=== PATIENT | female | born 1965 | race Caucasian/White ===

== ENCOUNTER 2020-04-23 18:19 | Emergency (ER) | payer MEDICARE, SELFPAY ==
[2020-04-23 18:27] VITALS: BP 211/101; PULSE 81; RESP 17; TEMP 36.1; O2SAT 96; BMI 25.8
--- NOTE | 2020-04-23 18:33 | ED_ITS ---
HPI - Eye Problem General: Chief complaint: Eye Problems Stated complaint: eye problems Time Seen by Provider: 04/23/20 18:26 Source: patient Mode of arrival: ambulatory Limitations: no limitations History of Present Illness: HPI Narrative: 55-year-old female who states she was bowling with her grandson states that he jumped up and hit her in the right eye. She does have a subconjunctival hemorrhage and she is 1 make sure that everything was okay. She denies any pain currently. She denies any change in her vision. MD chief complaint: eye pain and eye injury Associated symptoms: Denies fever(s), headache(s), nausea, neck pain or vomiting Review of Systems Const: Denies: fever(s), chills, body aches or change in appetite Eyes: Reports: eye redness ENMT: Denies: throat pain or dental pain Card: Denies: chest pain Resp: Denies: dyspnea GI: Denies: abdominal pain, nausea, vomiting or diarrhea : Denies: dysuria Musc: Denies: neck pain or back pain Skin/Breast: Denies: rash Neuro: Denies: headache(s) Psych: Denies: depression Issac/Lymph: Denies: easy bruising All/Imm: Denies: urticaria Physical Exam Const: COMMON NORMALS: no acute distress, patient oriented x3 and healthy appearing HENMT: COMMON NORMALS: normocephalic and atraumatic HEAD & SCALP: normocephalic and atraumatic Eye: COMMON NORMALS: Equal, round and reactive pupils present and EOMs intact bilaterally PUPIL: Yes Equal, round and reactive pupils present OTHER: Corneal abrasion noted to right eye under fluoroscopy seen. Patient also has a small subconjunctival hemorrhage Neck/C-Spine: COMMON NORMALS: full ROM and supple Chest: COMMONS NORMALS: normal inspection of the chest and normal palpation of entire chest wall Resp: COMMON NORMALS: normal respiratory effort, No retractions, No use of accessory muscles and clear to auscultation bilaterally AUSCULTATION: clear to auscultation bilaterally Cardio: COMMON NORMALS: regular rate, regular rhythm and No murmurs present (Cardio) RATE: regular rate RHYTHM: regular rhythm GI: COMMON NORMALS: Normal to inspection, nondistended, normoactive bowel sounds present, Soft to palpation, non-tender and no masses PALPATION: Yes Soft to palpation Extremity: COMMON NORMALS: normal to inspection and full ROM Neuro: COMMON NORMALS: patient oriented x3, moves all extremities and no focal motor deficits Psych: COMMON NORMALS: mental status grossly normal, Normal thought process present and cooperative THOUGHT PROCESS: Normal thought process present Skin: COMMON NORMALS: no rashes or lesions noted and no wounds GENERAL SKIN EXAM: no rashes or lesions noted Course Vital Signs: Vital signs: Vital Signs Temperature 96.9 F L 04/23/20 18:27 Pulse Rate 81 04/23/20 18:27 Respiratory Rate 17 04/23/20 18:27 Blood Pressure 211/101 04/23/20 18:27 Pulse Oximetry 96 04/23/20 18:27 MDM - Eye Problem MDM Narrative: Medical decision making narrative: Patient presents with a corneal abrasion along with a small subconjunctival hemorrhage to her right eye. She has no change in her vision. We will place her on erythromycin ointment. She is to follow-up with Dr. Linares and is return if worsening. She understands and agrees to the plan. Discharge Plan Discharge Patient Disposition: Home Clinical Impression: Corneal abrasion Qualifiers: Encounter type: initial encounter Laterality: right Qualified Code(s): S05.01XA - Injury of conjunctiva and corneal abrasion without foreign body, right eye, initial encounter Subconjunctival hemorrhage Qualifiers: Laterality: right Qualified Code(s): H11.31 - Conjunctival hemorrhage, right eye Condition: Stable Prescriptions: New erythromycin 5 mg/gram (0.5 %) ointment 1 applic ophthalmic (eye) TID 7 Days Qty: 3.5 RF: 0 Discharge Orders: Discharge Order (Routine); Ordered 04/23/20 Ordered By: Joselin Lopez Referrals: Felix Linares MD [Physician] - 1-3 days Nando Lopez MD [Family Provider] - Discharge Diet: Advance as tolerated Discharge Activity: Resume usual activity Patient Instructions: Subconjunctival Hemorrhage (ED), Corneal Abrasion (ED) Coding Level of Care Code ED Clinical Investigator for Chg Fwd Exam Comprehensive
[2020-04-23 18:43] VITALS: O2SAT 97
--- NOTE | 2020-04-28 09:45 | DCPLANNER ---
applications manager had message to schedule a follow up appointment for patient with Dr. Linares. applications manager had another message from Suzanne Badillo stating that a referral had been made to Dr. Linares office. This shoe caser called the office of Dr. Linares to confirm that an appointment had been scheduled for patient. applications manager was told that patient called and spoke with the physicians orthotics prosthetics assistant and does not want the appointment at this time.
== END 2020-04-23 18:45 | disposition home or self-care (01) ==
PROVIDERS: Emergency Provider Emergency Medicine; PCP Family Medicine
DX: H11.31 Conjunctival hemorrhage, right eye (principal); S05.01XA Injury of conjunctiva and corneal abrasion without foreign body, right eye, initial encounter; W50.0XXA Accidental hit or strike by another person, initial encounter
CPT/HCPCS: 12345; 99282

== ENCOUNTER 2020-07-20 08:01 | Outpatient (CLI) | payer BC, SELFPAY ==
--- NOTE | 2020-07-20 08:05 | MM_ITS ---
WS: [id number] BILATERAL DIGITAL SCREENING MAMMOGRAPHY WITH CAD CLINICAL INFORMATION: SCREENING HISTORY: Screening mammogram. No current complaints. COMPARISON: None. TECHNIQUE: Bilateral CC and MLO views. FINDINGS: The breasts are composed of heterogeneous fibroglandular density tissue, which can limit the detectio n of small underlying mass lesions. 7 mm asymmetric density outer left breast posterior depth only se en on the cc view. No comparisons available. Recommend spot compression views and ultrasound if persi stent. Unremarkable right breast. MM/[place] [id number] IMPRESSION: BI-RADS: 0-Incomplete: Need additional imaging evaluation FOLLOW UP: Need Additional Imaging Recommend spot compression views LEFT breast and ultrasound if persistent
== END 2020-07-20 08:02 | disposition home or self-care (01) ==
LOC: RADSHAW 08:03
PROVIDERS: PCP Family Medicine; Visit Provider Family Medicine
DX: Z12.31 Encounter for screening mammogram for malignant neoplasm of breast (principal); N64.89 Other specified disorders of breast
CPT/HCPCS: 77067

== ENCOUNTER 2020-08-04 07:59 | Outpatient (CLI) | payer BC, SELFPAY ==
--- NOTE | 2020-08-04 | US_ITS ---
WS: [id number] LEFT DIGITAL MAMMOGRAPHY WITH CAD CLINICAL INFORMATION: LT BREAST ASYMMETRY COMPARISON: None. TECHNIQUE: 2 views of the left breast were obtained. FINDINGS: The left breast is composed of heterogeneous fibroglandular density tissue, which can limit the detec tion of small underlying mass lesions. Lucent centered calcification. Stable 7 mm asymmetric density outer left breast posterior depth. Ultrasound is pending. ULTRASOUND BREAST LEFT TECHNIQUE: Ultrasound left breast focused area of concern. CLINICAL INFORMATION: LT BREAST ASYMMETRY COMPARISON: None. FINDINGS: Ultrasound left breast 1:00 position 4 cm from the nipple. A few subcentimeter cystic lesions. Mild d uctal ectasia. No suspicious lesions to target for biopsy. Findings have a benign appearance. US/US breast LT limited* [id number] IMPRESSION: BI-RADS: 2-Benign FOLLOW UP: 1 Year Follow-up Recommend return to annual screening mammography.
--- NOTE | 2020-08-04 08:06 | MM_ITS ---
WS: [id number] LEFT DIGITAL MAMMOGRAPHY WITH CAD CLINICAL INFORMATION: LT BREAST ASYMMETRY COMPARISON: None. TECHNIQUE: 2 views of the left breast were obtained. FINDINGS: The left breast is composed of heterogeneous fibroglandular density tissue, which can limit the detec tion of small underlying mass lesions. Lucent centered calcification. Stable 7 mm asymmetric density outer left breast posterior depth. Ultrasound is pending. ULTRASOUND BREAST LEFT TECHNIQUE: Ultrasound left breast focused area of concern. CLINICAL INFORMATION: LT BREAST ASYMMETRY COMPARISON: None. FINDINGS: Ultrasound left breast 1:00 position 4 cm from the nipple. A few subcentimeter cystic lesions. Mild d uctal ectasia. No suspicious lesions to target for biopsy. Findings have a benign appearance. MM/MM spot mag [facility] [id number] IMPRESSION: BI-RADS: 2-Benign FOLLOW UP: 1 Year Follow-up Recommend return to annual screening mammography.
== END 2020-08-04 08:00 | disposition home or self-care (01) ==
LOC: RADSHAW 08:01
PROVIDERS: PCP Family Medicine; Visit Provider Family Medicine
DX: N64.89 Other specified disorders of breast (principal)
CPT/HCPCS: 76642; 77065

== ENCOUNTER 2020-11-17 08:55 | Observation (INO) | payer BC, SELFPAY ==
[2020-11-17] VITALS (10 sets, daily range): BP systolic 125–162; BP diastolic 78–90; PULSE 84–113; RESP 17–20; TEMP 36.6–36.7; O2SAT 94–100; BMI 27.4
--- NOTE | 2020-11-17 09:04 | XR_ITS ---
WS: [id number] Exam: XR chest 1V portable [id number] Date/Time of Exam: 11/17/2020 9:25 AM Reason For Exam: dyspnea/cough Findings: The lungs are clear and fully expanded. Costophrenic angles are sharp. No infiltrates. Bronchovascula r relief appears normal. Cardiac silhouette is unremarkable. Bony elements are intact. XR/XR chest 1V portable [id number] IMPRESSION: Unremarkable chest radiograph.
--- NOTE | 2020-11-17 09:05 | ECG_ITS ---
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: : 1965 Requested By: Dereck Mccray Order Number: [id number] Reading MD: JOHNNIE DILLON Measurements Intervals [place] Rate: 80 P: -2 WI: 127 QRS: -49 QRSD: 101 T: -9 QT: 376 QTc: 436 Interpretive Statements SINUS RHYTHM LEFT AXIS DEVIATION [QRS AXIS < -30] INCOMPLETE RIGHT BUNDLE BRANCH BLOCK [90+ ms QRS DURATION, TERMINAL R IN V1/V2, 40+ ms S IN I/aVL/V4/V5/V6] POSSIBLE SEPTAL MYOCARDIAL INFARCTION , PROBABLY OLD [30 ms Q WAVE IN V1/V2] Compared to ECG 11/17/2020 09:12:58 Myocardial infarct finding now present T-wave abnormality no longer present Electronically Signed On 11-17-2020 20:07:54 [employer] by JOHNNIE DILLON [id number]
--- NOTE | 2020-11-17 09:27 | ED_ITS ---
HPI - Abdominal Pain General: Chief Complaint: Abdominal Pain Stated Complaint: CHEST PAIN, AB PAIN Time Seen by Provider: 11/17/20 08:56 History of Present Illness: HPI narrative: 55 yo female with complaints of RUQ abd pain rasiaiting into the back. WOrse with eating. has a hx of GERD and is on OTC meds. Denies vomitting but has been nauseous. No hematemesis or coffee ground emesis, no melena or hematochezia. Tums for the last 4 days prior to that she intermittently had symptoms lysed out of them as heartburn she is tried various [id number]-fis-[id number] remedies with no significant improvement she last ate this morning around 7. MD elicited complaint: abdominal pain Onset (ago): day(s) (4) Pain Consistency: constant and colicky Location: RUQ Severity: moderate Quality: cramping Radiation: back Exacerbating factors: eating Associated Symptoms: Reports anorexia, bloating, GI cramping, dyspepsia, nausea and poor appetite; Denies change in bowel habits, change in stool character, chills, coffee ground emesis, constipation, diarrhea, dysuria, excessive flatus, fever(s), heartburn, hematochezia, hematuria, hematemesis, fecal incontinence, loose stools, melena, syncope and vomiting Review of Systems Const: Denies: fever(s) or chills ENMT: Denies: throat pain, ear or mastoid pain, nasal discharge or nasal congestion Card: Denies: syncope Resp: Denies: dyspnea, productive cough or non-productive cough GI: Reports: nausea, bloating and GI cramping; Denies: vomiting, hematemesis, coffee ground emesis, heartburn, diarrhea, constipation, excessive flatus, change in bowel habits, change in stool diego cter, hematochezia or melena : Denies: dysuria or hematuria Skin/Breast: Denies: rash or pruritus PFSH ED PFSH: Medical History (Updated 11/17/20 @ 13:27 by Dereck Gage DO) Diabetes HTN (hypertension) Physical Exam Const: COMMON NORMALS: no acute distress GENERAL APPEARANCE: cooperative and comfortable ORIENTATION/CONSCIOUSNESS: Yes awake, Yes oriented to person, Yes oriented to place and Yes oriented to time HENMT: COMMON NORMALS: normocephalic, atraumatic and hearing grossly normal bilaterally HEAD & SCALP: normocephalic and atraumatic Neck/C-Spine: COMMON NORMALS: no JVD Resp: COMMON NORMALS: normal respiratory effort, No retractions, No use of accessory muscles and clear to auscultation bilaterally AUSCULTATION: clear to auscultation bilaterally Cardio: COMMON NORMALS: no JVD, regular rate, regular rhythm and No murmurs present (Cardio) RATE: regular rate RHYTHM: regular rhythm GI: COMMON NORMALS: Soft to palpation and No hepatosplenomegaly present AUSCULTATION: Yes normoactive bowel sounds PALPATION: Yes Soft to palpation, No Tenderness to palpation present (GI), No Guarding due to palpation present (GI) and Yes No hepatosplenomegaly present Extremity: COMMON NORMALS: normal to inspection, capillary refill normal, no clubbing, cyanosis or edema, no calf tenderness and no pedal edema Neuro: SENSORIUM/ORIENTATION: Yes oriented to person, Yes oriented to place and Yes oriented to time Skin: COMMON NORMALS: no rashes or lesions noted GENERAL SKIN EXAM: no rashes or lesions noted Course Vital Signs: Vital signs: Vital Signs Temperature 97.9 F 11/17/20 09:11 Pulse Rate 103 H 11/17/20 12:21 Respiratory Rate 18 11/17/20 12:21 Blood Pressure 140/78 11/17/20 12:21 Pulse Oximetry 100 11/17/20 12:21 MDM - Abdominal Pain MDM Narrative: Medical decision making narrative: MRCP shows acute cholecystitis but no evidence of common bile duct stone despite there is a dilated common bile duct. Discussed with Dr. Pepe he will take on his primary consult hospitalist for hypertension and diabetes. Lab Data: Labs: Lab Results 11/17/20 11/17/20 11/17/20 Range/Units 09:40 10:19 10:43 WBC 13.7 H (4.0-10.0) 10^3/ uL RBC 5.15 (4.1-5.3) 10^6/u L Hgb 15.6 H (11.5-15.3) g/dL Hct 47.0 (37.0-47.0) % MCV 91.3 (81-99) fL MCH 30.3 (28.0-34.0) pg MCHC 33.2 (30.0-36.0) g/dL RDW 13.0 (12.1-15.1) % Plt Count 263 (130-400) 10^3/c mm MPV 10.5 H (7.4-10.4) fL Neut % (Auto) 82.1 % Lymph % (Auto) 9.2 % [place] % (Auto) 7.5 % Eos % (Auto) 0.4 % Baso % (Auto) 0.4 % Neut # (Auto) 11.21 H (1.8-7.7) 10^3/u L Lymph # (Auto) 1.3 (0.8-4.8) 10^3/u L [place] # (Auto) 1.0 H (0.2-0.9) 10^3/u L Eos # (Auto) 0.1 (0.0-0.8) 10^3/u L Baso # (Auto) 0.1 (0.0-0.1) 10^3/u L Nucleated RBC % (a uto) 0 % Nucleated RBCs # 0.0 /100WBC Sodium 138 (136-145) mmol/L Potassium 3.4 L (3.5-5.1) mmol/L Chloride 100 (98-107) mmol/L Carbon Dioxide 27 (22-29) mmol/L Anion Gap 14.4 (5-19) BUN 14 (6-20) mg/dL Creatinine 0.7 (0.5-0.9) mg/dL GFR Calculation 86.2 L (90-130) mL/min Glucose 140 H (65-115) mg/dL Calculated Osmolal ity 289 (285-295) mOsm/k g Calcium 9.8 (8.5-10.5) mg/dL Total Bilirubin 1.0 (0.15-1.2) mg/dL AST 20 (0-32) U/L ALT 30 (0-33) U/L Alkaline Phosphata se 87 (35-105) IU/L Troponin T Baselin e (0-10) ng/L Troponin T 120 Min [place] (0-10) ng/L Delta Troponin T (0-10) ABS# Total Protein 7.5 (6.6-8.7) g/dL Albumin 4.7 (3.5-5.2) g/dL Globulin 2.8 (1.3-4.6) g/dL Lipase 31 (13-60) U/L Urine Color Yellow (Yellow) Urine Appearance Clear (CLEAR) Urine pH 6.5 (5-7) Ur Specific Gravit y 1.010 (1.005-1.030) Urine Protein 1+ H (Negative) Urine Glucose (UA) 4+ H (Normal) Urine Ketones 1+ H (Negative) Urine Blood 2+ H (Negative) Urine Nitrate Negative (Negative) Urine Bilirubin Neg (Negative) Urine Urobilinogen 1 H (Negative) mg/dL Ur Leukocyte [place] ase Negative (Negative) Urine RBC 0-4 H (0-2) /hpf Urine WBC 0-4 H (0-5) /hpf Ur Squamous Epith Cells 5-10 H (0-5) /hpf Amorphous Sediment Not Reportable Urine Bacteria Trace (NONE) /hpf Urine Mucus Trace /hpf 11/17/20 11/17/20 Range/Units 10:43 11:38 WBC (4.0-10.0) 10^3/ uL RBC (4.1-5.3) 10^6/u L Hgb (11.5-15.3) g/dL Hct (37.0-47.0) % MCV (81-99) fL MCH (28.0-34.0) pg MCHC (30.0-36.0) g/dL RDW (12.1-15.1) % Plt Count (130-400) 10^3/c mm MPV (7.4-10.4) fL Neut % (Auto) % Lymph % (Auto) % [place] % (Auto) % Eos % (Auto) % Baso % (Auto) % Neut # (Auto) (1.8-7.7) 10^3/u L Lymph # (Auto) (0.8-4.8) 10^3/u L [place] # (Auto) (0.2-0.9) 10^3/u L Eos # (Auto) (0.0-0.8) 10^3/u L Baso # (Auto) (0.0-0.1) 10^3/u L Nucleated RBC % (a uto) % Nucleated RBCs # /100WBC Sodium (136-145) mmol/L Potassium (3.5-5.1) mmol/L Chloride (98-107) mmol/L Carbon Dioxide (22-29) mmol/L Anion Gap (5-19) BUN (6-20) mg/dL Creatinine (0.5-0.9) mg/dL GFR Calculation (90-130) mL/min Glucose (65-115) mg/dL Calculated Osmolal ity (285-295) mOsm/k g Calcium (8.5-10.5) mg/dL Total Bilirubin (0.15-1.2) mg/dL AST (0-32) U/L ALT (0-33) U/L Alkaline Phosphata se (35-105) IU/L Troponin T Baselin e 6 (0-10) ng/L Troponin T 120 Min [place] 6.00 (0-10) ng/L Delta Troponin T 0 (0-10) ABS# Total Protein (6.6-8.7) g/dL Albumin (3.5-5.2) g/dL Globulin (1.3-4.6) g/dL Lipase (13-60) U/L Urine Color (Yellow) Urine Appearance (CLEAR) Urine pH (5-7) Ur Specific Gravit y (1.005-1.030) Urine Protein (Negative) Urine Glucose (UA) (Normal) Urine Ketones (Negative) Urine Blood (Negative) Urine Nitrate (Negative) Urine Bilirubin (Negative) Urine Urobilinogen (Negative) mg/dL Ur Leukocyte [place] ase (Negative) Urine RBC (0-2) /hpf Urine WBC (0-5) /hpf Ur Squamous Epith Cells (0-5) /hpf Amorphous Sediment Urine Bacteria (NONE) /hpf Urine Mucus /hpf Discharge Plan Discharge Patient Disposition: Admitted As Inpatient Clinical Impression: Acute cholecystitis, HTN (hypertension), Diabetes Condition: Stable Prescriptions: No Action Tylenol Extra Strength 500 mg Tablet 500 - 1,000 mg PO PRN RF: 0 metoprolol ta-hydrochlorothiaz 100-25 mg tablet 1 tab PO QAM RF: 0 triamcinolone acetonide 0.1 % ointment 1 applic TOPICAL PRN RF: 0 metformin 750 mg tablet extended release 24 hr 1,500 mg PO QPM RF: 0 Jardiance 10 mg tablet 10 mg PO QAM RF: 0 naproxen 1 tab PO PRN RF: 0 Referrals: Alina French MD [Primary Care Provider] - Patient Instructions: Opioid Safety Coding Level of Care Code ED Drilling Machine Runner for Chg Fwd Exam Comprehensive
--- NOTE | 2020-11-17 09:27 | US_ITS ---
WS: [id number] ULTRASOUND ABDOMEN LIMITED CLINICAL INFORMATION: RUQ abd pain COMPARISON: None. FINDINGS: Liver Size: Normal. Craniocaudal length: 17.5 cm. Echogenicity: Coarse Surface nodularity: None. Mass (size and location): None. Bile ducts Intrahepatic ducts: Normal. Common bile duct diameter: 0.6 cm. Difficult to visualize Gallbladder Distended hydropic gallbladder with cholelithiasis and wall thickening. Distended gallbladder measure s 14.1 cm [id number]. Pericholecystic edema. Findings suspicious for acute cholecystitis. Gallstones: Present Gallbladder sludge: None. Gallbladder wall thickenin.7 mm Pancreas Normal as visualized. Right kidney: Normal. Hydronephrosis: None. Size: 10.8 cm x 5.2 cm x 4.9 cm. Abdominal aorta and IVC Visualized portions are normal. Ascites: None. US/US gall bladder [id number] IMPRESSION: 1. Hepatomegaly diffuse fatty infiltration. 2. Cholelithiasis with pericholecystic fluid/edema suspicious for acute cholec ystitis. Distended hydropic gallbladder. Prominent Common bile duct not well vi sualized. 3. No hydronephrosis in right kidney.
--- NOTE | 2020-11-17 10:09 | MR_ITS ---
WS: [id number] MRI/MRCP OF THE ABDOMEN WITHOUT GADOLINIUM ENHANCEMENT TECHNIQUE: Thin and thick slab MRCP, Axial T2, Coronal MRCP, Axial Dual Echo, and Axial 2-D Fiesta imaging was obtained. Coronal 2-D Fiesta imaging. CLINICAL INFORMATION: dialted CBD/cholelithiasis COMPARISON: None. FINDINGS: Hepatomegaly diffuse fatty infiltration. Cholelithiasis with gallbladder wall thickening and perichol ecystic fluid in the gallbladder fossa. Findings are consistent with acute cholecystitis. Inflammator y stranding and edema in the gallbladder fossa. Gallbladder wall measures 6 to 7 mm. 2 large gallblad bahman calculi measuring 3 and 4 mm respectively. Hydropic distended gallbladder measuring 14.3 cm pole- to-pole. No significant intrahepatic biliary ductal dilatation. Mild prominence of the common bile duct at the pancreatic head measuring 6 mm. This tapers normally at the distal pancreatic head. No evidence of c holedocholithiasis. Small right hepatic cyst measuring 8 mm. Normal spleen. Small splenule. Normal caliber abdominal aort a. Normal renal parenchymal enhancement. No hydronephrosis. Small left renal cortical cysts. Normal c aliber abdominal aorta. MR/MR MRCP [id number] Impression: 1. Findings compatible with acute cholecystitis described above. Associated pr ominent gallbladder wall thickening and pericholecystic fluid. 2. Large calculi in the gallbladder measuring 3 to 4 cm with hydropic distende d gallbladder measuring 14 cm pole to pole. 3. No evidence of choledocholithiasis. 4. No significant intrahepatic biliary duct dilatation. Notified Dereck Gage DO at 11/17/2020 1:16 PM.
[2020-11-17 10:46] LABS: Urine Color Yellow (Yellow)
[2020-11-17 10:47] LABS: Add Urine Microscopic? YES; Bilirubin Urine Neg (Negative); Blood Urine 2+ (Negative); Glucose Urine UA 4+ (Normal); Ketones Urine 1+ (Negative); Leukocyte Esterase Urine Negative (Negative); Nitrate Urine Negative (Negative); Protein Urine 1+ (Negative); Urine Appearance Clear (CLEAR); Urobilinogen Urine 1 mg/dL (Negative); pH Urine 6.5 (5-7)
[2020-11-17 10:50] LABS: Bacteria Urine TRACE /hpf; RBC Urine 0-4 /hpf (0-2); WBC Urine 0-4 /hpf (0-5)
[2020-11-17 10:51] LABS: Add Urine Culture? No; Mucus Urine TRACE /hpf
[2020-11-17 10:52] LABS: Basophils # 0.1 10^3/uL (0.0-0.1); Basophils % 0.4 %; Eosinophils # 0.1 10^3/uL (0.0-0.8); Eosinophils % 0.4 %; Hemoglobin 15.6 g/dL (11.5-15.3); Lymphocytes # 1.3 10^3/uL (0.8-4.8); Lymphocytes % 9.2 %; Mean Corpuscular HGB Conc 33.2 g/dL (30.0-36.0); Mean Corpuscular Hemoglobin 30.3 pg (28.0-34.0); Mean Corpuscular Volume 91.3 fL (81-99); Mean Platelet Volume 10.5 fL (7.4-10.4); Monocytes % 7.5 %; Neutrophils # 11.21 10^3/uL (1.8-7.7); Neutrophils % 82.1 %; Nucleated Red Blood Cells % 0 %; Platelet Count 263 10^3/cmm (130-400); Red Blood Count 5.15 10^6/uL (4.1-5.3); White Blood Count 13.7 10^3/uL (4.0-10.0)
--- NOTE | 2020-11-17 11:05 | ECG_ITS ---
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: : 1965 Requested By: Dereck Mccray Order Number: [id number] Reading MD: JOHNNIE DILLON Measurements Intervals [place] Rate: 89 P: 55 IN: 140 QRS: -55 QRSD: 96 T: 40 QT: 361 QTc: 441 Interpretive Statements SINUS RHYTHM POSSIBLE LEFT ATRIAL ENLARGEMENT [-0.1mV P WAVE IN V1/V2] LEFT AXIS DEVIATION [QRS AXIS < -30] INCOMPLETE RIGHT BUNDLE BRANCH BLOCK [90+ ms QRS DURATION, TERMINAL R IN V1/V2, 40+ ms S IN I/aVL/V4/V5/V6] POSSIBLE LEFT VENTRICULAR HYPERTROPHY [VOLTAGE CRITERIA PLUS LAE OR QRS WIDENING] NONSPECIFIC T-WAVE ABNORMALITY Compared to ECG 11/17/2020 09:17:01 T-wave abnormality now present Myocardial infarct finding no longer present Electronically Signed On 11-17-2020 20:08:48 [employer] by JOHNNIE DILLON [id number]
[2020-11-17 11:11] LABS: Alanine Aminotransferase 30 U/L (0-33); Albumin Level 4.7 g/dL (3.5-5.2); Alkaline Phosphatase 87 IU/L (35-105); Anion Gap 14.4 (5-19); Aspartate Amino Transferase 20 U/L (0-32); Blood Urea Nitrogen 14 mg/dL (6-20); Calcium 9.8 mg/dL (8.5-10.5); Carbon Dioxide 27 mmol/L (22-29); Chloride 100 mmol/L (98-107); Globulin 2.8 g/dL (1.3-4.6); Glomerular Filtration Rate 86.2 mL/min (90-130); Glucose 140 mg/dL (65-115); Lipase 31 U/L (13-60); Osmolality Calculated 289 mOsm/kg (285-295); Potassium 3.4 mmol/L (3.5-5.1); Sodium 138 mmol/L (136-145); Total Protein 7.5 g/dL (6.6-8.7)
[2020-11-17 11:13] LABS: Troponin(5th) Baseline 6 ng/L (0-10)
--- NOTE | 2020-11-17 11:51 | PC.NURSE ---
Gone for MRI
[2020-11-17 12:25] LABS: Troponin 5 2HR Delta 0 ABS# (0-10)
--- NOTE | 2020-11-17 12:46 | PC.NURSE ---
Back from MRI, pt stable , continue to monitor
--- NOTE | 2020-11-17 14:31 | PC.NURSE ---
Attempted to call report twice with no answer on M/S
--- NOTE | 2020-11-17 14:36 | PC.NURSE ---
Attempted to call report, was told no staff could take report since everybody is at lunch . UC told that pt would be brought up and bedside report would be given.
[2020-11-17] MEDS: piperacillin-tazobactam 3.375 GM in sodium chloride 0.9% (plus) 50 ML IV ×2 (14:44→21:43)
[2020-11-17] MEDS: sodium chlor 0.9% + KCl 20 mEq 20 MEQ/1,000 ML BAG 150 MEQ IV ×2 (14:44→21:43)
--- NOTE | 2020-11-17 15:04 | P.HP_ITS ---
Providers/Chief Complaint Admitting Physician: Yaw Pepe MD Primary Care Provider: Alina French MD Chief Complaint: CHEST PAIN, AB PAIN History of Present Illness Ms. Ching Mendiola is a pleasant 55 year old female well-known history of diabetes mellitus type 2 on Metformin and history of hypertension. Patient complains of abdominal pain for at least the past 4 days if not up to 7 days, the patient's describes her pain is more sharp at the right upper quadrant and referred to the back. Associated with nausea but no vomiting or fevers or chills or jaundice, patient never experienced this problem before and she was never aware that she has gallbladder stones. As her pain got worse presented to the emergency department for further evaluation and work-up in the form of Ultrasound of the liver and gallbladder showed; 1. Hepatomegaly diffuse fatty infiltration. 2. Cholelithiasis with pericholecystic fluid/edema suspicious for acute cholecystitis. Distended hydropic gallbladder. Prominent Common bile duct not well visualized. 3. No hydronephrosis in right kidney. MRCP shows: 1. Findings compatible with acute cholecystitis described above. Associated pro minent gallbladder wall thickening and pericholecystic fluid. 2. Large calculi in the gallbladder measuring 3 to 4 cm with hydropic distended gallbladder measuring 14 cm pole to pole. 3. No evidence of choledocholithiasis. 4. No significant intrahepatic biliary duct dilatation. Lab work showed leukocytosis of 13.7 and LFTs were within normal limits. General surgery was consulted for further evaluation and potential management. Review of Systems General: Reports: 10 or more systems reviewed and unremarkable except in HPI and below Medications/Allergies Home Medications Medication Instructions Recorded Confirmed Last Taken Type acetaminophen [Tylenol Extra 500 - 1,000 mg PO PRN 11/17/20 11/17/20 Unknown History Strength] empagliflozin [Jardiance] 10 mg PO QAM 11/17/20 11/17/20 11/17/20 History metformin 1,500 mg PO QPM 11/17/20 11/17/20 11/16/20 History metoprolol ta-hydrochlorothiaz 1 tab PO QAM 11/17/20 11/17/20 11/17/20 History naproxen 1 tab PO PRN 11/17/20 11/17/20 Unknown History triamcinolone acetonide 1 applic TOPICAL PRN 11/17/20 11/17/20 Unknown History Allergies Allergy/AdvReac Type Severity Reaction Status Date / Time No Known Allergies Allergy Verified 11/17/20 17:11 PFSH Acute PFSH: Medical History Diabetes HTN (hypertension) Surgical History No pertinent past surgical history Family History Father CAD (coronary artery disease) Lung disease Social History Smoking and tobacco status: never smoked Alcohol intake: never Substance/Drug Use: never Vitals/I&O/Wt Last Vital Signs Temp 98.1 F 11/17/20 14:56 Pulse 95 11/17/20 14:56 Resp 18 11/17/20 14:56 BP 132/79 11/17/20 14:56 Pulse Ox 96 11/17/20 14:56 Weight last 48 hrs Weight 170 lb Physical Exam Narrative: EXAM NARRATIVE: Patient is conscious alert oriented X3 BMI 27.4 Head and neck examination PERRLA no masses no cervical lymphadenopathy no jaundice Cardiac examination audible S1-S2 no murmurs no gallops no arrhythmias Chest is clear bilateral,abscence of Rhonchi or wheezes,no surgical emphysema Abdomen right upper quadrant tenderess nondistended soft no organomegaly guarding or rigidity/no signs of peritonitis Overweight Extremities no cyanosis no clubbing no edema Data : 11/18/20 02:18 11/18/20 02:18 A&P Assessment and plan (1) Acute cholecystitis: After thorough history physical examination and reviewing the chart and im ages with my personal interpretation of ultrasound and MRCP images. I did discuss with the patient the following options: 1-laparoscopic cholecystectomy possible open yet I did explain for the patient that the preference to perform the procedure within 48 to 72 hours from the actual onset of symptoms afterwards more inflammatory tissues should to be encountered which increases the risk of conversion to open also high risk of biliary injury. 2-IV antibiotics and switch to oral with the plan for transition to elective laparoscopic cholecystectomy in 4 to 6 weeks 3-cholecystostomy tube under image guided and plan for elective laparoscopic cholecystectomy in 4-6 weeks Patient would like to think about it and she will let me know tomorrow on morning rounds We will plan to repeat CBC and CMP and also sent for coags in the morning. Meanwhile we will continue IV antimicrobial therapy and pain medications with appropriate IV fluid resuscitation Assurance and education All questions have been answered and all concerns have been addressed to patient's satisfaction. I appreciate Dr. Harris's input with regard to medical management Status: Acute Attestations Medical Necessity Statement*: Observation status for medical and surgical care with potential plan for surgical intervention in the form of laparoscopic cholecystectomy after appropriate IV fluid resuscitation and antimicrobial therapy Time Spent in Patient Care: (>than 50% of time spent in counselling and/or direct pt care on unit) . Coding Level of Care Code Acute Surgical Technologist for [facility] Diagnoses Acute cholecystitis K81.0
--- NOTE | 2020-11-17 15:05 | ECG_ITS ---
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: : [id number] Requested By: Dereck Mccray Order Number: [id number] Reading MD: JOHNNIE DILLON Measurements Intervals [place] Rate: 78 P: -9 UT: 127 QRS: -46 QRSD: 101 T: -10 QT: 357 QTc: 409 Interpretive Statements SINUS RHYTHM LEFT AXIS DEVIATION [QRS AXIS < -30] INCOMPLETE RIGHT BUNDLE BRANCH BLOCK [90+ ms QRS DURATION, TERMINAL R IN V1/V2, 40+ ms S IN I/aVL/V4/V5/V6] MODERATE VOLTAGE CRITERIA FOR LVH, CONSIDER NORMAL VARIANT [MEETS CRITERIA IN ONE OF: R(aVL), S(V1), R(V5), R(V5/V6)+S(V1)] NONSPECIFIC T-WAVE ABNORMALITY No previous ECG available for comparison Electronically Signed On 11-17-2020 20:09:00 VIDEO PHOTOGRAPHER by JOHNNIE DILLON [email or web address]
--- NOTE | 2020-11-17 15:28 | PM.CONSULT ---
Providers/Reason For Consult Consulting Physican/Specialty*: General surgery Reason for Consult*: Medical management of type 2 diabetes, hypertension Attending Physician: Yaw Pepe MD Primary Care Provider: Alina French MD History of Present Illness History of Present Illness Ching Mendiola is a 55 year old female with a past medical history of noninsulin-dependent type 2 diabetes mellitus, last hemoglobin A1c 6.3, hypertension, who presents to [facility] due to complaints of right upper quadrant and epigastric abdominal pain for the last 4 days. Patient tells me that she typically will get abdominal pain, in the epigastrium, sometimes in the right upper quadrant, associated with heavy meals, has been occurring intermittently for some time, she is not really paid attention to the symptoms. They are not particularly debilitating, is not on any hormonal therapy. However for the last 4 days she has had developed constant right upper quadrant and epigastric pain, radiating to her back, associated with nausea, no vomiting, poor appetite, no constipation, no diarrhea, no bloody or black stools. No fevers, no chills, no sick contacts, no known exposure to COVID-19. She has never had any surgeries, no history of anesthesia, no cardiovascular history, no history of chest pain, no history of shortness of breath, no history of COPD or asthma, no history of smoking, no history of kidney disease. Review of Systems Const: Denies: fever(s), chills, fatigue or malaise Eyes: Denies: change in vision or blurry vision ENMT: Denies: nasal congestion Resp: Denies: dyspnea, productive cough, non-productive cough or wheezing GI: Reports: abdominal pain and nausea; Denies: vomiting, hematemesis, diarrhea, constipation, hematochezia or melena : Denies: flank pain, dysuria or urinary frequency Musc: Reports: back pain; Denies: neck pain Skin/Breast: Denies: rash Neuro: Denies: headache(s), dizziness or vertigo Psych: Denies: anxiety or depression Endo: Denies: polyuria or polydipsia Meds/Allergies Home Medications and Allergies Home Medications Medication Instructions Recorded Confirmed Last Taken Type acetaminophen [Tylenol Extra 500 - 1,000 mg PO PRN 11/17/20 11/17/20 Unknown History Strength] empagliflozin [Jardiance] 10 mg PO QAM 11/17/20 11/17/20 11/17/20 History metformin 1,500 mg PO QPM 11/17/20 11/17/20 11/16/20 History metoprolol ta-hydrochlorothiaz 1 tab PO QAM 11/17/20 11/17/20 11/17/20 History naproxen 1 tab PO PRN 11/17/20 11/17/20 Unknown History triamcinolone acetonide 1 applic TOPICAL PRN 11/17/20 11/17/20 Unknown History Allergies Allergy/AdvReac Type Severity Reaction Status Date / Time No Known Allergies Allergy Verified 11/17/20 09:53 Current Medications Current Medications Generic Name Dose Route Start Last Admin Trade Name Freq PRN Reason Stop Dose Admin Potassium Chloride/Sodium Chloride 20 meq in 1,000 mls @ 150 mls/hr 11/17/20 13:30 11/17/20 14:44 Sodium Chlor 0.9% + Kcl 20 Meq IV 150 mls/hr .Q6H40M ZAHRAA Administration PFSH Acute PFSH: Medical History (Updated 11/17/20 @ 13:27 by Dereck Gage DO) Diabetes HTN (hypertension) Surgical History (Updated 11/17/20 @ 15:31 by Hemant Harris MD) No pertinent past surgical history Family History (Updated 11/17/20 @ 15:32 by Hemant Harris MD) Father CAD (coronary artery disease) Lung disease Social History (Updated 11/17/20 @ 15:32 by Hemant Harris MD) Smoking and tobacco status: never smoked Alcohol intake: never Substance/Drug Use: never Vitals/I&O/Wt Last Vital Signs Temp 98.1 F 11/17/20 14:56 Pulse 113 H 11/17/20 15:03 Resp 17 11/17/20 15:03 BP 125/82 11/17/20 15:03 Pulse Ox 96 11/17/20 15:03 Weight last 48 hrs Weight 77.111 kg Physical Exam Const: COMMON NORMALS: no acute distress and patient oriented x3 GENERAL APPEARANCE: cooperative and comfortable HENMT: COMMON NORMALS: normocephalic HEAD & SCALP: normocephalic Eye: COMMON NORMALS: Equal, round and reactive pupils present and EOMs intact bilaterally GENERAL EYE: appearance normal, both eyes and all related structures PUPIL: Yes Equal, round and reactive pupils present Neck/C-Spine: COMMON NORMALS: full ROM, no lymphadenopathy, no JVD and Thyroid normal THYROID: Thyroid normal Lymph: LYMPHATIC: no lymphadenopathy noted Resp: COMMON NORMALS: normal respiratory effort, No retractions, No use of accessory muscles and clear to auscultation bilaterally AUSCULTATION: clear to auscultation bilaterally Cardio: COMMON NORMALS: no JVD, regular rate, S1 normal heart sound present, S2 normal heart sound present, No gallops present (Cardio) and No clicks present (Cardio) RATE: regular rate HEART SOUNDS: S1 normal heart sound present, S2 normal heart sound present and Murmur heart sound present systolic GI: COMMON NORMALS: Normal to inspection, nondistended, normoactive bowel sounds present, Soft to palpation and No hepatosplenomegaly present PALPATION: Yes Soft to palpation, Yes Tenderness to palpation present (GI) Details: RUQ and Yes No hepatosplenomegaly present Extremity: COMMON NORMALS: normal to inspection, full ROM and no pedal edema Neuro: COMMON NORMALS: patient oriented x3, CN's II-XII intact bilaterally, moves all extremities and no focal motor deficits Psych: COMMON NORMALS: mental status grossly normal, Normal thought process present and cooperative THOUGHT PROCESS: Normal thought process present A&P Assessment and plan (1) Acute cholecystitis: MRCP showed findings compatible with acute cholecystitis, associated prominent gallbladder wall thickening, pericholecystic fluid, large calculi in the gallbladder measuring 3 to 4 cm with hydropic distended gallbladder measuring 14 cm [id number], no evidence of choledocholithiasis, no significant intrahepatic biliary dilatation White blood cell count 13.7 She does not have any cardiovascular history, no history of chest pain, no history of shortness of breath, no history of lung disease, does have a cardiac murmur since childhood which is asymptomatic Plan: -Admit to general medical floors -Currently on Zosyn -N.p.o. -Morphine for pain control -Zofran for nausea -Awaiting surgical evaluation -Hospitalist team on consult -Heparin for DVT prophylaxis -Full code Status: Acute (2) Diabetes: Low-dose sliding scale Status: Acute (3) HTN (hypertension): Monitor blood pressures Status: Acute Coding Level of Care Code Acute Cook [employer] Style Food for [facility] Fwd Diagnoses Acute cholecystitis K81.0 Diabetes E11.9 HTN (hypertension) I10
[2020-11-17 15:59] LABS: Glucose Point of Care 119 mg/dL (70-110)
[2020-11-17 16:55] LABS: Troponin 5 6HR Delta 0 ng/L (0-12)
[2020-11-17] MEDS: famotidine 20 mg Tablet PO (17:27)
[2020-11-17] MEDS: acetaminophen 325 mg Tablet 650 MG PO (18:10)
[2020-11-17 20:36] LABS: Glucose Point of Care 159 mg/dL (70-110)
[2020-11-17] MEDS: heparin 5,000 unit/mL INJ 1 mL 5000 UNIT SUBCUT (21:45)
[2020-11-18] VITALS (16 sets, daily range): BP systolic 116–145; BP diastolic 66–84; PULSE 68–109; RESP 14–19; TEMP 36.2–37.6; O2SAT 92–100
[2020-11-18 02:45] LABS: Basophils # 0.1 10^3/uL (0.0-0.1); Basophils % 0.5 %; Eosinophils # 0.1 10^3/uL (0.0-0.8); Eosinophils % 0.5 %; Hematocrit 44.3 % (37.0-47.0); Hemoglobin 14.4 g/dL (11.5-15.3); Lymphocytes # 1.4 10^3/uL (0.8-4.8); Lymphocytes % 12.6 %; Mean Corpuscular HGB Conc 32.5 g/dL (30.0-36.0); Mean Corpuscular Hemoglobin 30.4 pg (28.0-34.0); Mean Corpuscular Volume 93.7 fL (81-99); Mean Platelet Volume 10.7 fL (7.4-10.4); Monocytes % 8.9 %; Neutrophils # 8.64 10^3/uL (1.8-7.7); Neutrophils % 77.2 %; Nucleated Red Blood Cells % 0 %; Platelet Count 241 10^3/cmm (130-400); Red Blood Count 4.73 10^6/uL (4.1-5.3); Red Cell Distribution Width 13.2 % (12.1-15.1); White Blood Count 11.2 10^3/uL (4.0-10.0)
[2020-11-18 02:56] LABS: Partial Thromboplastin Time 36.3 SECONDS (23.9-36.7)
[2020-11-18 03:05] LABS: C Reactive Protein 174.8 mg/L (0.0-4.9); Magnesium 1.7 mg/dL (1.7-2.3); Phosphorus 2.6 mg/dL (2.5-4.5)
[2020-11-18 03:06] LABS: Alanine Aminotransferase 28 U/L (0-33); Albumin Level 3.9 g/dL (3.5-5.2); Alkaline Phosphatase 74 IU/L (35-105); Anion Gap 16.3 (5-19); Aspartate Amino Transferase 20 U/L (0-32); Blood Urea Nitrogen 11 mg/dL (6-20); Calcium 8.5 mg/dL (8.5-10.5); Carbon Dioxide 21 mmol/L (22-29); Chloride 105 mmol/L (98-107); Globulin 3.1 g/dL (1.3-4.6); Glucose 122 mg/dL (65-115); Osmolality Calculated 289 mOsm/kg (285-295); Potassium 3.3 mmol/L (3.5-5.1); Sodium 139 mmol/L (136-145); Total Bilirubin 1.3 mg/dL (0.15-1.2)
[2020-11-18] MEDS: sodium chlor 0.9% + KCl 20 mEq 20 MEQ/1,000 ML BAG 150 MEQ IV ×2 (04:34→18:34)
[2020-11-18] MEDS: metoprolol tartrate 50 mg Tablet 100 MG PO (06:23)
[2020-11-18] MEDS: hydroCHLOROthiazide 25 mg Tablet PO (06:23)
[2020-11-18] MEDS: piperacillin-tazobactam 3.375 GM in sodium chloride 0.9% (plus) 50 ML IV ×3 (06:24→21:11)
--- NOTE | 2020-11-18 06:24 | PM.PN ---
Subjective Subjective: Interval history: Patient overall is better yet still sore, she decided to proceed with laparoscopic cholecystectomy. Trending down of leukocytosis and total bilirubin is up to 1.3 likely due to the acute inflammatory process. Good urine output. Otherwise no acute events overnight Vitals/I&O/Wt Last Vital Signs Temp 99.1 F 11/18/20 04:00 Pulse 108 H 11/18/20 04:00 Resp 17 11/18/20 04:00 BP 145/79 11/18/20 04:00 Pulse Ox 96 11/18/20 04:00 11/17/20 11/17/20 11/18/20 14:59 22:59 06:59 Intake Total 1000 / 1000 1050 / 2050 Output Total 225 / 225 Balance 1000 / 1000 825 / 1825 Weight last 48 hrs Weight 170 lb Physical Exam Narrative: EXAM NARRATIVE: Patient is conscious alert oriented X3 BMI 27.4 Head and neck examination PERRLA no masses no cervical lymphadenopathy no jaundice Cardiac examination audible S1-S2 no murmurs no gallops no arrhythmias Chest is clear bilateral,abscence of Rhonchi or wheezes,no surgical emphysema Abdomen right upper quadrant tenderess nondistended soft no organomegaly guarding or rigidity/no signs of peritonitis Overweight Extremities no cyanosis no clubbing no edema Data : 11/18/20 02:18 11/18/20 02:18 A&P Assessment and plan (1) Acute cholecystitis: Plan of care; After thorough history physical examination and reviewing the chart and images with my personal intrepreatation.I counseled the patient for laparoscopic cholecystectomy possible open, indications risks including but not limited injury to the common bile duct and/or other viscera,that may require potential future surgical interventions including but not limited to ERCP and or laparatomy that may include Hepatobiliary surgery.Benefits and alternatives all discussed with the patient, and patient did agree to proceed accordingly. All questions have been answered and all concerns have been addressed to patient's satisfaction. Rationale was carefully and clearly discussed with the patient.Appropriate informed consent have been reviewed and signed. Status: Acute Attestations Medical Necessity Statement*: Observation status for medical management of diabetes and perioperative care including IV antimicrobial therapy and pain control Time Spent in Patient Care: (>than 50% of time spent in counselling and/or direct pt care on unit). 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
[2020-11-18 06:47] LABS: Glucose Point of Care 120 mg/dL (70-110)
[2020-11-18] MEDS: acetaminophen 325 mg Tablet 650 MG PO (07:14)
--- NOTE | 2020-11-18 07:57 | PC.OT ---
OT EVALUATION ORDERS RECEIVED. PATIENT IS ON SURGERY SCHEDULE THIS A.M. WILL HOLD EVALUATION UNTIL TOMORROW.
--- NOTE | 2020-11-18 09:12 | P.ANESASSM_ITS ---
Pre-Anesthetic Assessment Pre-Anesthetic Assessment: Height/Weight: Height 1.68 m Weight 77.111 kg Temp Pulse Resp BP Pulse Ox 97.8 F 82 18 116/75 95 11/18/20 07:30 11/18/20 07:30 11/18/20 07:30 11/18/20 07:30 11/18/20 07:30 Preop Diagnosis: Acute calculus cholecystitis Proposed Procedure: Operation Date: 11/18/20 09:30 Proposed Procedures p Laparoscopic Cholecystectomy(Not Applicable) - Yaw Pepe MD Was Beta Gayathri taken within 24 hours: Yes Last intake: Intake Last Liquid Date 11/18/20 Last Liquid Time 00:00 Last Solid Date 11/17/20 Last Solid Time 07:00 Social: Social History: No alcohol and No tobacco Exam: Pre-Anes Outpt Exam: alert, oriented x 3, clear to auscultation bilaterally and regular rate & rhythm Airway: Submandibular: WNL Cervical ROM: WNL MP: 2 Dentition: Full CV/HEM: CV/HEM: HTN Metabolic: Metabolic: DM Anesthetic Plan: ASA status: 2 Anesthesia: General Risk of > 500 ml blood loss (7ml/kg in children): No Meds/Allergies Current Medications: Current Medications Generic Name Dose Route Start Last Admin Trade Name Freq PRN Reason Stop Dose Admin Acetaminophen 650 mg 11/17/20 17:31 11/18/20 07:14 Acetaminophen 32 5 Mg Tablet PO 650 mg Q8H PRN Administration MILD PAIN Famotidine 20 mg 11/17/20 18:00 11/18/20 07:39 Famotidine 20 Mg Tablet PO Not Given BID ZAHRAA Heparin Sodium (Be ef Lung) 5,000 unit 11/17/20 21:00 11/18/20 07:39 Heparin 5,000 Un it/Ml Inj 1 Ml SUBCUT Not Given Q12H ZAHRAA Hydrochlorothiazid e 25 mg 11/18/20 06:00 11/18/20 06:23 Hydrochlorothiaz stefani 25 Mg Tablet PO 25 mg QAM ZAHRAA Administration Potassium Chloride /Sodium Chloride 20 meq in 1,000 m ls @ 150 mls/hr 11/17/20 13:30 11/18/20 04:34 Sodium Chlor 0.9 % + Kcl 20 Meq IV 150 mls/hr .Q6H40M ZAHRAA Administration Piperacillin Sod/T azobactam 50 mls @ 12.5 mls /hr 11/17/20 21:00 11/18/20 06:24 Sod 3.375 gm/ So dium Chloride IV 12.5 mls/hr Q8H ZAHRAA Administration Protocol Insulin Aspart 0 unit 11/17/20 18:00 11/18/20 07:39 Insulin Aspart 1 00 Unit/1 Ml SUBCUT Not Given TIDWM ZAHRAA Protocol Metoprolol Tartrat e 100 mg 11/18/20 06:00 11/18/20 06:23 Metoprolol Tartr ate 50 Mg Tablet PO 100 mg QAM ZAHRAA Administration PFSH Anesthesia PFSH: Medical History Diabetes HTN (hypertension) Surgical History No pertinent past surgical history Family History Father CAD (coronary artery disease) Lung disease Social History Smoking and tobacco status: never smoked Alcohol intake: never Substance/Drug Use: never Data Anesthesia CBC & Chem 7: 11/18/20 02:18 11/18/20 02:18 Other Labs: Laboratory Results - last 48 hr 11/17/20 11/17/20 11/17/20 09:40 10:19 10:43 WBC 13.7 H RBC 5.15 Hgb 15.6 H Hct 47.0 MCV 91.3 MCH 30.3 MCHC 33.2 RDW 13.0 Plt Count 263 MPV 10.5 H Neut % (Auto) 82.1 Lymph % (Auto) 9.2 [place]pine % (Auto) 7.5 Eos % (Auto) 0.4 Baso % (Auto) 0.4 Neut # (Auto) 11.21 H Lymph # (Auto) 1.3 Alpine # (Auto) 1.0 H Eos # (Auto) 0.1 Baso # (Auto) 0.1 Nucleated RBC % (auto) 0 Nucleated RBCs # 0.0 PT INR APTT Sodium 138 Potassium 3.4 L Chloride 100 Carbon Dioxide 27 Anion Gap 14.4 BUN 14 Creatinine 0.7 GFR Calculation 86.2 L Glucose 140 H POC Glucose Calculated Osmolality 289 Calcium 9.8 Phosphorus Magnesium Total Bilirubin 1.0 AST 20 ALT 30 Alkaline Phosphatase 87 Troponin T Baseline Troponin T 120 Minute Delta Troponin T Troponin T Hi Sens 6Hr Troponin T Hi Sens 6Hr Delta C-Reactive Protein Total Protein 7.5 Albumin 4.7 Globulin 2.8 Lipase 31 Procalcitonin Urine Color Yellow Urine Appearance Clear Urine pH 6.5 Ur Specific [place] 1.010 Urine Protein 1+ H Urine Glucose (UA) 4+ H Urine Ketones 1+ H Urine Blood 2+ H Urine Nitrate Negative Urine Bilirubin Neg Urine Urobilinogen 1 H Ur Leukocyte Esterase Negative Urine RBC 0-4 H Urine WBC 0-4 H Ur Squamous Epith Cells 5-10 H Amorphous Sediment Not Reportable Urine Bacteria Trace Urine Mucus Trace 11/17/20 11/17/20 11/17/20 10:43 11:38 15:51 WBC RBC Hgb Hct MCV MCH MCHC RDW Plt Count MPV Neut % (Auto) Lymph % (Auto) [place] % (Auto) Eos % (Auto) Baso % (Auto) Neut # (Auto) Lymph # (Auto) [place] # (Auto) Eos # (Auto) Baso # (Auto) Nucleated RBC % (auto) Nucleated RBCs # PT INR APTT Sodium Potassium Chloride Carbon Dioxide Anion Gap BUN Creatinine GFR Calculation Glucose POC Glucose Calculated Osmolality Calcium Phosphorus Magnesium Total Bilirubin AST ALT Alkaline Phosphatase Troponin T Baseline 6 Troponin T 120 Minute 6.00 Delta Troponin T 0 Troponin T Hi Sens 6Hr 6.00 Troponin T Hi Sens 6Hr Delta 0 C-Reactive Protein Total Protein Albumin Globulin Lipase Procalcitonin Urine Color Urine Appearance Urine pH Ur Specific [place] Urine Protein Urine Glucose (UA) Urine Ketones Urine Blood Urine Nitrate Urine Bilirubin Urine Urobilinogen Ur Leukocyte Esterase Urine RBC Urine WBC Ur Squamous Epith Cells Amorphous Sediment Urine Bacteria Urine Mucus 11/17/20 11/17/20 11/18/20 15:54 20:29 02:18 WBC RBC Hgb Hct MCV MCH MCHC RDW Plt Count MPV Neut % (Auto) Lymph % (Auto) [place] % (Auto) Eos % (Auto) Baso % (Auto) Neut # (Auto) Lymph # (Auto) [place] # (Auto) Eos # (Auto) Baso # (Auto) Nucleated RBC % (auto) Nucleated RBCs # PT INR APTT Sodium Potassium Chloride Carbon Dioxide Anion Gap BUN Creatinine GFR Calculation Glucose POC Glucose 119 H 159 H Calculated Osmolality Calcium Phosphorus 2.6 Magnesium 1.7 Total Bilirubin AST ALT Alkaline Phosphatase Troponin T Baseline Troponin T 120 Minute Delta Troponin T Troponin T Hi Sens 6Hr Troponin T Hi Sens 6Hr Delta C-Reactive Protein 174.8 H Total Protein Albumin Globulin Lipase Procalcitonin Urine Color Urine Appearance Urine pH Ur Specific [place] Urine Protein Urine Glucose (UA) Urine Ketones Urine Blood Urine Nitrate Urine Bilirubin Urine Urobilinogen Ur Leukocyte Esterase Urine RBC Urine WBC Ur Squamous Epith Cells Amorphous Sediment Urine Bacteria Urine Mucus 11/18/20 11/18/20 11/18/20 02:18 02:18 02:18 WBC 11.2 H RBC 4.73 Hgb 14.4 Hct 44.3 MCV 93.7 MCH 30.4 MCHC 32.5 RDW 13.2 Plt Count 241 MPV 10.7 H Neut % (Auto) 77.2 Lymph % (Auto) 12.6 Alpine % (Auto) 8.9 Eos % (Auto) 0.5 Baso % (Auto) 0.5 Neut # (Auto) 8.64 H Lymph # (Auto) 1.4 Alpine # (Auto) 1.0 H Eos # (Auto) 0.1 Baso # (Auto) 0.1 Nucleated RBC % (auto) 0 Nucleated RBCs # 0.0 PT 13.50 INR 1.00 APTT 36.3 Sodium Potassium Chloride Carbon Dioxide Anion Gap BUN Creatinine GFR Calculation Glucose POC Glucose Calculated Osmolality Calcium Phosphorus Magnesium Total Bilirubin AST ALT Alkaline Phosphatase Troponin T Baseline Troponin T 120 Minute Delta Troponin T Troponin T Hi Sens 6Hr Troponin T Hi Sens 6Hr Delta C-Reactive Protein Total Protein Albumin Globulin Lipase Procalcitonin 0.20 Urine Color Urine Appearance Urine pH Ur Specific [place] Urine Protein Urine Glucose (UA) Urine Ketones Urine Blood Urine Nitrate Urine Bilirubin Urine Urobilinogen Ur Leukocyte Esterase Urine RBC Urine WBC Ur Squamous Epith Cells Amorphous Sediment Urine Bacteria Urine Mucus 11/18/20 11/18/20 02:18 06:39 WBC RBC Hgb Hct MCV MCH MCHC RDW Plt Count MPV Neut % (Auto) Lymph % (Auto) Al[place] % (Auto) Eos % (Auto) Baso % (Auto) Neut # (Auto) Lymph # (Auto) [place] # (Auto) Eos # (Auto) Baso # (Auto) Nucleated RBC % (auto) Nucleated RBCs # PT INR APTT Sodium 139 Potassium 3.3 L Chloride 105 Carbon Dioxide 21 L Anion Gap 16.3 BUN 11 Creatinine 0.6 GFR Calculation 103.0 Glucose 122 H POC Glucose 120 H Calculated Osmolality 289 Calcium 8.5 Phosphorus Magnesium Total Bilirubin 1.3 H AST 20 ALT 28 Alkaline Phosphatase 74 Troponin T Baseline Troponin T 120 Minute Delta Troponin T Troponin T Hi Sens 6Hr Troponin T Hi Sens 6Hr Delta C-Reactive Protein Total Protein 7.0 Albumin 3.9 Globulin 3.1 Lipase Procalcitonin Urine Color Urine Appearance Urine pH Ur Specific [place] Urine Protein Urine Glucose (UA) Urine Ketones Urine Blood Urine Nitrate Urine Bilirubin Urine Urobilinogen Ur Leukocyte Esterase Urine RBC Urine WBC Ur Squamous Epith Cells Amorphous Sediment Urine Bacteria Urine Mucus Cardiac Studies: No Data to Display
[2020-11-18] MEDS: sodium chloride 0.9% 1,000 ML 30 ML IV (09:25)
--- NOTE | 2020-11-18 11:16 | PC.CHAP ---
Pastoral Care Encounter/Spiritual Assessment Type of Contact [] Declined regional sales trainer visit [] Patient/Family/Request visit [] Outpatient visit [] Follow-up visit [] Physician referral [] Code/Alert [] Routine visit [] Staff referral [] Actively dying [] Patient sleeping [] Family support [] [x] Out of room [] Palliative care [] [] Receiving care in room [] Pre-surgical visit [] Trauma [] Long length of stay [] ICU visit [x] Other: in surgery Relational/Emotional Strength [] Patient feels connected with others/family/visitors/staff [] Distress [] Loneliness/isolation [] Abandonment Spirituality of Patient [] Person of Debra [] Attends Spiritism of their Debra [] Believes in Prayer [] Reads Bible or Faith materials [] There are Spiritual issues to be addressed Visualization Developer Interventions [] Prayer [] Active listening [] Non-anxious presence [] Spiritual/emotional support [] Crisis/trauma care [] Spiritual counseling [] Bereavement support [] Provided bereavement packet [] Provided Bible/devotional materials [] Provided toy/stuffed animal, coloring book to patient or family member [] Provided Communion [] Anointing/[place] [] Salvation [] Completed spiritual assessment [] Other: Impact on Illness or Injury [] Angry [] Fearful [] Anxious [] Often cries [] Exhaustion [] Unable to work [] Unable to attend mandaeism [] Unable to walk/stand [] Unable to read [] Unable to drive [] Unable to eat/drink [] Unable to sleep [] Unable to be with family [] Patient intubated [] Other: Summary in surgery Time spent with patient 6 mins
[2020-11-18] MEDS: lidocaine 2% INJ 20 mL INJECTION (11:41)
--- NOTE | 2020-11-18 11:42 | P.OP_ITS ---
Operative Report Date of procedure: November 18, 2020 Pre-op Diagnosis: Acute calculus cholecystitis Post-op Findings: Acute on top of chronic calculus cholecystitis with extensive edema and adhesions Hepatomegaly likely due to fatty liver Right lobe cyst 1 x 1 cm Procedure Done: Laparoscopic cholecystectomy Laparoscopic excision of right lobe cyst Implants: Large pieces of Surgicel x2 FloSeal Specimens removed/disposition: Gallbladder aspirate for cultures and sensitivity Gallbladder and contents Right hepatic lobe cyst Surgeon: Yaw Pepe Photovoltaic Panel Installer: Surgical ernestina Ferguson Circulating nurse Valery Anesthesia: General (college specialist Bernadette) Estimated blood loss (mL): 100 IV fluids (mL): 1,000 Condition: stable Disposition: floor Brief History: This is a pleasant 55 years old female patient presenting with worsening symptoms associated with acute cholecystitis. Full H&P per chart . plan of care; After thorough history physical examination and reviewing the chart and images with my personal intrepreatation.I counseled the patient for laparoscopic cholecystectomy possible open, indications risks including but not limited injury to the common bile duct and/or other viscera,that may require potential future surgical interventions including but not limited to ERCP and or laparatomy that may include Hepatobiliary surgery.Benefits and alternatives all discussed with the patient, and patient did agree to proceed accordingly. All questions have been answered and all concerns have been addressed to patient's satisfaction. Rationale was carefully and clearly discussed with the patient.Appropriate informed consent have been reviewed and signed. Procedure: Patient was identified in the holding area and taken back to the operative suite, placed in supine position intubated by anesthesia . Time-out was done verifying the patient's name/date of /planned procedure and destination after the procedure, all were in agreement. SCDs confirmed to be functioning, preoperative antibiotics administered per protocol, and beta kathy protocol was confirmed. Patient was appropriately secured to the table, footboard was applied to the OR table, before prep and drape anesthesia was asked to tilt the table back and forth to make sure that the patient is appropriately secured and she was. Prep and drape of the abdomen was done under the usual sterile technique, followed by that supraumbilical skin incision,skin incision was done by a 15 blade knife, and stay sutures were applied to the fascia and Baptiste trocar technique was used to enter the abdominal without injuring any abdominal viscera, started by low flow gas insufflation followed by a high flow, started with a 10 mm laparoscope and under direct vision there was no evidence of any injuries, the scope then switched to a 30? ,10 millimeter scope and under direct visualization 5 millimeter trocar was inserted in the epigastric region followed by two 5 mm trocars were inserted in the right upper quadrant that was done after injection of local lidocaine 2% at all incision sites. Gallbladder showed acute calculus cholecystitis with extensive edema &with adhesions Hepatomegaly likely due to fatty liver Patient was then positioned in the head up and tilted to the left Ratcheted forceps were introduced into the lateral most 5mm port and was applied unto the fundus of the gallbladder cephalad and using Bullet forceps the infundi bulum of the gallbladder was retracted laterally. Gallbladder was remarkably distended and adherent to the hepatic flexure, started by aspirating about 60 mL of green bile and that was sent for cultures and sensitivity, decompression of the gallbladder was done to allow appropriate grasping. To help with traction and countertraction I did use 5 mm tenaculum x2 under direct visualization. I was able to peel off the inflamed gallbladder from the posterior aspect of the hepatic flexure gently. Using [place] forceps then L-hook cautery to dissect the peritoneum overlying the Calot's triangle which was then opened medially and laterally until the cystic duct and the cystic artery were skeletonized.Dissection was carried along the body of the gallbladder and after ensuring critical view of safety was identfied. Cystic duct and cystic artery where seen connected to the gallbladder. Clips were applied on the cystic duct towards the common bile duct 1 towards the gallbladder then divided is in sharp scissors, 2 clips were then applied onto the cystic artery and 1 towards the gallbladder and divided by sharp scissors. Dissection was then carried along of the gallbladder from the gallbladder fossa using cautery as well as sharp dissection with heat energy. The gallbladder then was dissected out from the gallbladder fossa totally , cholecystectomy was then achieved and was placed in an Endo Catch bag and then retrieved from the Baptiste trocar site under direct visualization using a 5 mm 30? scope through the epigastric trocar, specimen was then passed to the circulating nurse to go for permanent pathology,irrigation and hemostasis was done to the gallbladder fossa after hemostasis was secured and accomplished by placement of large pieces of Surgicel x2 in addition to FloSeal, final survey laparoscopy was done that showed no injuries. Suction after copious irrigation was obtained using at least 3 L of warm saline Incidental finding of small cyst about 1 cm in diameter located at the anterior surface of the dome of the right lobe of the liver was removed and the cyst wall was sent for permanent pathology. The supraumbilical fascial defect was then closed using interrupted #1 PDS sutures using a fascial closure device ;Chris Meyers under direct visualization Gas was allowed to deflate,Trocars were then taken out under direct vision there was no evidence of bleeding Specimen was passed to the circulating nurse for permanent pathology. No drains were placed and the supraumbilical incision as well as all trocar sites were closed by skin bonifacio to approximate the skin edges of the supraumbilical incision, dressing was applied in the form of Band-Aids and the patient patient got extubated and was taken to recovery area in a stable condition. Count of sponges, needles and instruments were completed at the end of the procedure I was present for the whole entire procedure.
--- NOTE | 2020-11-18 12:10 | PM.PN ---
Subjective Subjective: Interval history: patient was seen in the post op area after laproscopic cholecystectomy, she is still under the affect anesthesia, a bit drowsy Vitals/I&O/Wt Last Vital Signs Temp 97.8 F 11/18/20 07:30 Pulse 82 11/18/20 07:30 Resp 18 11/18/20 07:30 BP 116/75 11/18/20 07:30 Pulse Ox 95 11/18/20 07:30 11/17/20 11/18/20 11/18/20 22:59 06:59 14:59 Intake Total 1000 / 1000 1050 / 2050 730 / 730 Output Total 225 / 225 Balance 1000 / 1000 825 / 1825 730 / 730 Weight last 48 hrs Weight 77.111 kg Physical Exam Narrative: EXAM NARRATIVE: under the affect of anesthesia Const: COMMON NORMALS: no acute distress ORIENTATION/CONSCIOUSNESS: Yes awake and Yes oriented to person; not oriented to place and not oriented to time HENMT: COMMON NORMALS: normocephalic HEAD & SCALP: normocephalic Neck/C-Spine: COMMON NORMALS: no JVD Resp: COMMON NORMALS: normal respiratory effort, No retractions, No use of accessory muscles and clear to auscultation bilaterally AUSCULTATION: clear to auscultation bilaterally Cardio: COMMON NORMALS: no JVD, regular rate, regular rhythm, S1 normal heart sound present and S2 normal heart sound present RATE: regular rate RHYTHM: regular rhythm HEART SOUNDS: S1 normal heart sound present and S2 normal heart sound present GI: COMMON NORMALS: Normal to inspection, nondistended, normoactive bowel sounds present, Soft to palpation, non-tender, No hepatosplenomegaly present, no masses and no bruits PALPATION: Yes Soft to palpation and Yes No hepatosplenomegaly present Extremity: COMMON NORMALS: capillary refill normal, no clubbing, cyanosis or edema, no calf tenderness and no pedal edema Neuro: SENSORIUM/ORIENTATION: Yes oriented to person, No oriented to place and No oriented to time Psych: COMMON NORMALS: mental status grossly normal Data : 11/18/20 02:18 11/18/20 02:18 A&P Assessment and plan (1) Acute cholecystitis: MRCP showed findings compatible with acute cholecystitis, associated prominent gallbladder wall thickening, pericholecystic fluid, large calculi in the gallbladder measuring 3 to 4 cm with hydropic distended gallbladder measuring 14 cm [id number], no evidence of choledocholithiasis, no significant intrahepatic biliary dilatation White blood cell count 11.7, Tbili 1.3, afebrile, Plan: -s/p laproscopic cholecystectomy by -Admit to general medical floors -Currently on Zosyn -N.p.o. -Morphine for pain control -Zofran for nausea -Hospitalist team on consult -Heparin for DVT prophylaxis -Full code Status: Acute (2) Diabetes: Low-dose sliding scale Status: Acute (3) HTN (hypertension): Monitor blood pressures Status: Acute Attestations Medical Necessity Statement*: Patient requires hospitalization status post laparoscopic cholecystectomy Coding Level of Care Code Acute Compliance Quality Performance Analyst for [facility] F[facility] Diagnoses Acute cholecystitis K81.0 Diabetes E11.9 HTN (hypertension) I10
--- NOTE | 2020-11-18 12:12 | SUR.PHASEI ---
1205 PT OPENS EYES TO TOUCH, HOSPITALIST AT BEDSIDE PT QUICKLY BACK TO SLEEP NO DISTRESS NOTED RESP EVEN AND UNLABORED ABD SOFT WITH 4 SITES D/I BANDAIDS IN PLACE, SCDS ON IV PATENT PT ON RA TRIAL.
--- NOTE | 2020-11-18 12:18 | SUR.PHASEI ---
PT AWAKES TO VOICE, TAKING OCC ICE CHIPS PT DENIES PAIN AND NAUSEA THEN QUICKLY BACK TO SLEEP WITH NO DISTRESS NOTED.
--- NOTE | 2020-11-18 12:51 | PC.NURSE ---
OR NOTE REPORT CALLED PER TARA BENITEZ - TO FLOOR VIA STRETCHER WITH TARA MCRAE AT SIDE - PT ALERT AND ORIENTATED - ASSIST TO BED - AP RRR - LUNGS COARSE TO AUSCULTATION - ABD SOFT WITH NO DISTENTION - X4 BAND AIDS TO ABD C/D/I - ABD SOFT WITH BS HYPOACTIVE - IV INFUSING VIA PUMP TO LEFT HAND - BLE SCD'S IN PLACE - AT SIDE
[2020-11-18] MEDS: HYDROcodone-acetaminophen 5-325 mg Tablet 1 TAB PO ×2 (13:02→19:02)
[2020-11-18] MEDS: morphine 4 mg/mL SDV 1 mL 2 MG IVP (14:28)
[2020-11-18] MEDS: famotidine 20 mg Tablet PO (16:56)
[2020-11-18 17:00] LABS: Glucose Point of Care 147 mg/dL (70-110)
[2020-11-18 20:57] LABS: Glucose Point of Care 148 mg/dL (70-110)
[2020-11-19] VITALS: BP 119/71; PULSE 94; RESP 18; TEMP 37.6; O2SAT 93
[2020-11-19] MEDS: sodium chlor 0.9% + KCl 20 mEq 20 MEQ/1,000 ML BAG 150 MEQ IV ×2 (00:16→06:47)
[2020-11-19] MEDS: HYDROcodone-acetaminophen 5-325 mg Tablet 1 TAB PO ×2 (01:14→08:18)
[2020-11-19 03:25] LABS: C Reactive Protein 218.8 mg/L (0.0-4.9); Magnesium 1.7 mg/dL (1.7-2.3); Phosphorus 1.5 mg/dL (2.5-4.5)
[2020-11-19 03:53] LABS: Procalcitonin 0.42 ng/mL (0-0.5)
[2020-11-19 04:00] VITALS: BP 126/75; PULSE 96; RESP 18; TEMP 37.4; O2SAT 93
[2020-11-19] MEDS: piperacillin-tazobactam 3.375 GM in sodium chloride 0.9% (plus) 50 ML IV (05:14)
[2020-11-19] MEDS: metoprolol tartrate 50 mg Tablet 100 MG PO (05:15)
[2020-11-19] MEDS: hydroCHLOROthiazide 25 mg Tablet PO (05:15)
--- NOTE | 2020-11-19 06:30 | P.PN_ITS ---
Subjective Subjective: Interval history: Patient overall feels better yet sore. Vital signs stable and good urine output. Vitals/I&O/Wt Last Vital Signs Temp 99.4 F 11/19/20 04:00 Pulse 96 11/19/20 04:00 Resp 18 11/19/20 04:00 BP 126/75 11/19/20 04:00 Pulse Ox 93 11/19/20 04:00 11/18/20 11/18/20 11/19/20 14:59 22:59 06:59 Intake Total 1280 / 1280 290 / 1570 1265 / 2835 Output Total 1100 / 1100 1000 / 2100 1225 / 3325 Balance 180 / 180 -710 / -530 40 / -490 Weight last 48 hrs Weight 170 lb Physical Exam Narrative: EXAM NARRATIVE: Patient is conscious alert oriented X3 BMI 27.4 Head and neck examination PERRLA no masses no cervical lymphadenopathy no jaundice Cardiac examination audible S1-S2 no murmurs no gallops no arrhythmias Chest is clear bilateral,abscence of Rhonchi or wheezes,no surgical emphysema Abdomen nontender except slightly at the incision sites, dressing dry clean and intact nondistended soft no organomegaly guarding or rigidity/no signs of peritonitis Extremities no cyanosis no clubbing no edema Data : 11/18/20 02:18 11/18/20 02:18 Micro: Microbiology 11/18/20 11:45 Gram Stain - Final Gallbladder Fluid A&P Assessment and plan (1) Acute cholecystitis: Status post laparoscopic cholecystectomy and excision of liver cyst 11/18/2020 Advance diet as tolerated a.m. lab showed normal bilirubin level and slight elevation in LFTs which is expected as the patient had larger raw gallbladder fossa and cauterization was implemented likely that is the cause of elevation of LFTs, will follow on CMP in 10 days at my office. If patient continues to do well plan to discharge home today from surgical standpoint of view and I would recommend highly to be placed on Augmentin 875 mg twice daily for 7 days Return to surgery office in 10 days with repeat CMP Assurance and education All questions have been answered and all concerns have been addressed to patient's satisfaction. Status: Resolved Attestations Medical Necessity Statement*: Hospitalization for medical management of diabetes and perioperative care for laparoscopic cholecystectomy. Time Spent in Patient Care: (>than 50% of time spent in counselling and/or direct pt care on unit) . Coding Level of Care Code Acute Stitch Separator for Chg Fwd Diagnoses Acute cholecystitis K81.0
[2020-11-19 06:48] LABS: Glucose Point of Care 106 mg/dL (70-110)
[2020-11-19 07:11] VITALS: BP 127/74; PULSE 83; RESP 18; TEMP 37; O2SAT 92
[2020-11-19 07:24] LABS: Alanine Aminotransferase 153 U/L (0-33); Albumin Level 3.4 g/dL (3.5-5.2); Alkaline Phosphatase 65 IU/L (35-105); Aspartate Amino Transferase 229 U/L (0-32); Globulin 2.5 g/dL (1.3-4.6); Total Bilirubin 0.6 mg/dL (0.15-1.2); Total Protein 5.9 g/dL (6.6-8.7)
[2020-11-19] MEDS: famotidine 20 mg Tablet PO (08:18)
--- NOTE | 2020-11-19 10:31 | PC.OT ---
OT EVALUATION ORDERS RECEIVED. OT SCREEN COMPLETED; NO FURTHER SKILLED OT SERVICES REQUIRED.
[2020-11-19 10:44] LABS: Glucose Point of Care 142 mg/dL (70-110)
[2020-11-19 11:08] VITALS: BP 128/78; PULSE 91; RESP 18; TEMP 36.9; O2SAT 96
--- NOTE | 2020-11-19 11:09 | P.DS_ITS ---
Discharge Providers Date of Admission: 11/17/20 13:23 Date of Discharge: November 19, 2020 Attending Provider at Admission: Yaw Pepe MD Attending Provider at Discharge: Yaw Pepe MD Primary Care Provider: Alina French MD Diagnoses at Discharge Discharge Diagnosis (1) Acute cholecystitis: Status: Resolved Reason for Visit Reason for Visit: CHEST PAIN, AB PAIN Hospital Course Hospital Course This is a 55-year-old female with a past medical history of hypertension, [id number] type 2 diabetes mellitus, who presents to [facility] for abdominal pain secondary to acute cholecystitis. Patient was admitted to the general medical floors, received IV fluids, antibiotic therapy, kept n.p.o., general surgery performed a laparoscopic cholecystectomy and excision of liver cyst. Patient tolerated surgery well, she was kept 1 day postop to receive antibiotic therapy, and IV fluids. Remained afebrile, LFTs were slightly elevated, normal bilirubin. Patient will be discharged on antibiotic therapy for the next 7 days, a short supply of narcotics for postoperative pain to be used sparingly, follow-up with Dr. Pepe in 10 days, repeat LFTs in 10 days. Patient was instructed to continue to hydrate well, advance diet as tolerated, monitor for fevers, worsening abdominal pain if so come back to the emergency room. Physical Exam Const: COMMON NORMALS: no acute distress and patient oriented x3 HENMT: COMMON NORMALS: normocephalic HEAD & SCALP: normocephalic Neck/C-Spine: COMMON NORMALS: no JVD Resp: COMMON NORMALS: normal respiratory effort, No retractions, No use of accessory muscles and clear to auscultation bilaterally AUSCULTATION: clear to auscultation bilaterally Cardio: COMMON NORMALS: no JVD, regular rate, regular rhythm, S1 normal heart sound present and S2 normal heart sound present RATE: regular rate RHYTHM: regular rhythm HEART SOUNDS: S1 normal heart sound present and S2 normal heart sound present GI: COMMON NORMALS: Normal to inspection, nondistended, normoactive bowel sounds present, Soft to palpation, non-tender, No hepatosplenomegaly present, no masses and no bruits PALPATION: Yes Soft to palpation and Yes No hepatosplenomegaly present OTHER: Surgical site looks clean and dry Extremity: COMMON NORMALS: capillary refill normal, no clubbing, cyanosis or edema, no calf tenderness and no pedal edema Neuro: COMMON NORMALS: patient oriented x3 Psych: COMMON NORMALS: mental status grossly normal Discharge Data Data Completed and Pending: Completed Studies During Hospitalization Category Date Time Status XR chest 1V arnaud ble [id number] Stat Exams 11/17/20 09:04 Completed MR MRCP 97994 Sta t MRI 11/17/20 10:09 Completed US gall bladder 7 6705 Stat Ultrasound 11/17/20 09:27 Completed Pending at discharge Category Date Time Status ES surgery / GI i mages Routine Exams 11/18/20 09:37 Taken Body Fluid Cultur e & GS Routine Lab 11/18/20 11:45 Results C Reactive Protei n AM LABS Lab 11/20/20 04:00 Ordered Magnesium AM LABS Lab 11/20/20 04:00 Ordered Phosphorus AM LAB S Lab 11/20/20 04:00 Ordered Procalcitonin AM LABS Lab 11/20/20 04:00 Ordered Pathology: Surgic al [PTH] Routine Pth 11/18/20 11:53 Received Labs from last 24 hours 11/19/20 11/19/20 11/19/20 10:34 06:40 02:41 POC Glucose 142 H 106 Phosphorus Magnesium Total Bilirubin 0.6 Direct Bilirubin 0.30 AST 229 H ALT 153 H Alkaline Phosphata se 65 C-Reactive Protein Total Protein 5.9 L Albumin 3.4 L Globulin 2.5 Procalcitonin 11/19/20 11/19/20 11/18/20 02:41 02:41 20:48 POC Glucose 148 H Phosphorus 1.5 L Magnesium 1.7 Total Bilirubin Direct Bilirubin AST ALT Alkaline Phosphata se C-Reactive Protein 218.8 H Total Protein Albumin Globulin Procalcitonin 0.42 11/18/20 16:56 POC Glucose 147 H Phosphorus Magnesium Total Bilirubin Direct Bilirubin AST ALT Alkaline Phosphata se C-Reactive Protein Total Protein Albumin Globulin Procalcitonin Vitals: Last Vital Signs Temp 98.6 F 11/19/20 07:11 Pulse 83 11/19/20 07:11 Resp 18 11/19/20 07:11 BP 127/74 11/19/20 07:11 Pulse Ox 92 11/19/20 07:11 Discharge Plan Discharge Patient Disposition: Home Condition: Stable Prescriptions: [place] 5-325 mg tablet 1 tab PO Q8H PRN (Reason: pain) 7 Days Qty: 21 RF: 0 amoxicillin-pot clavulanate [Augmentin] 875-125 mg tablet 1 tab PO BID 7 Days Qty: 14 RF: 0 Continued metoprolol ta-hydrochlorothiaz 100-25 mg tablet 1 tab PO QAM RF: 0 triamcinolone acetonide 0.1 % ointment 1 applic TOPICAL PRN RF: 0 metformin 750 mg tablet extended release 24 hr 1,500 mg PO QPM RF: 0 Jardiance 10 mg tablet 10 mg PO QAM RF: 0 Held naproxen 1 tab PO PRN RF: 0 Hold Instructions: Resume on 12/03/20. Discontinued acetaminophen [Tylenol Extra Strength] 500 mg Tablet 500 - 1,000 mg PO PRN RF: 0 Discharge Orders: Discharge Order (Routine); Ordered 11/19/20 Ordered By: Hemant Harris Other Ambulatory Orders: Comprehensive Metabolic Panel (Routine) Timeframe: 10 Day Facility: [facility] - Location: Lab - Main Lab Ordered By: Hemant Harris Referrals: Alina French MD [Primary Care Provider] - Discharge Diet: Advance as tolerated Discharge Activity: Limit activity as instructed Patient Instructions: Opioid Safety Activity Restrictions/Additional Instructions: -Please drink plenty of electrolyte balance fluids -Advance diet as tolerated -If you have sudden fevers, worsening abdominal pain, abdominal distention, lack of bowel movements please come back to the emergency room -Take antibiotics as prescribed -Please use hydrocodone sparingly for pain Stand Alone Forms: Work/School Release Discharge Attestations Time Spent in Discharge Care*: less than 30 min Quality Metrics Clinical Quality Measures During this hospital stay, did patient experience: None Coding Level of Care Code Acute Tube Cleaner for Hailee Royal Diagnoses Acute cholecystitis K81.0
[2020-11-19 11:26] VITALS: BP 128/78; PULSE 91; RESP 18; TEMP 36.9; O2SAT 96
--- NOTE | 2020-11-24 12:28 | PC.SOCIAL ---
Patient discharged on 11/19/2020 and left message yesterday trying to clarify if she was to followup with Dr Pepe. Per Dr Pepe note was to see him in 10 days. No appt and no number given at DC to arrange this. Asked patient if she would like this nurse to arrange and she was relieved and verified yes. Appt scheduled for 12/01/2020 at 2:15pm. Called patient back to updated and provided their address along with appt date and time per request. No further questions or concerns voiced.
== END 2020-11-19 11:55 | disposition home or self-care (01) ==
LOC: ER 13:27 → MEDSURG 11-18 05:45
PROVIDERS: Family Medicine; Admitting Provider Surgery; Emergency Provider Family Medicine; PCP Family Medicine; Visit Provider Surgery
PROC: 0FT44ZZ Resection of Gallbladder, Percutaneous Endoscopic Approach (ICD-10-PCS; CPT 47562; principal; 2020-11-18 09:30)
DX: K80.10 Calculus of gallbladder with chronic cholecystitis without obstruction (principal); E11.9 Type 2 diabetes mellitus without complications; I10 Essential (primary) hypertension
CPT/HCPCS: 47562; 36415; 36416; 71045; 74181; 76705; 80053; 80076; 81001; 82962; 83690; 83735; 84100; 84145; 84484; 85025; 85610; 85730; 86140; 87070; 87075; 87205; 88304; 88307; 93005; 94664; 96372; G0378; J0330; J1644; J2250; J2270; J2543; J2704; J3010; J3490; J7030

== ENCOUNTER 2022-04-20 14:56 | Outpatient (CLI) | payer OTHER, SELFPAY ==
--- NOTE | 2022-04-20 15:14 | MM_ITS ---
WS: [id number] BILATERAL 3D TOMOSYNTHESIS DIGITAL SCREENING MAMMOGRAPHY WITH CAD CLINICAL INFORMATION: SCREENING HISTORY: Screening mammogram. No current complaints. COMPARISON: July 20, 2020 TECHNIQUE: Bilateral CC and MLO views. FINDINGS: Scattered fibroglandular densities bilaterally. Incidental punctate and lucent centered calcification s. No suspicious focal mass, asymmetry, calcifications, or architectural distortion. No evidence of m alignancy. MM/[place] [id number] IMPRESSION: BI-RADS: 2-Benign FOLLOW UP: 1 Year Follow-up Recommend return to annual screening mammography.
== END 2022-04-20 14:57 | disposition home or self-care (01) ==
PROVIDERS: PCP Family Medicine; Visit Provider Family Medicine
DX: Z12.31 Encounter for screening mammogram for malignant neoplasm of breast (principal)
CPT/HCPCS: 77063; 77067

== ENCOUNTER 2025-07-21 18:13 | Emergency (ER) | payer OTHER, SELFPAY ==
[2025-07-21 18:17] VITALS: BP 167/79; PULSE 80; RESP 18; TEMP 36.4; O2SAT 100
--- OUTSIDE RECORDS SUMMARY | 2025-07-21 18:29 | XMS_ITS | Clinical Summary ---
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 Gender Identity Not on file Sexual Orientation Not on file Last Filed Vital Signs Vital Sign Reading Time Taken Comments Blood Pressure 116/78 05/27/2015 5:55 PM CDT Pulse - - Temperature 36.8 C (98.2 F) 05/27/2015 5:55 PM CDT Respiratory Rate 18 05/27/2015 5:55 PM CDT Oxygen Saturation 95% 05/27/2015 5:55 PM CDT Inhaled Oxygen Concentration - - Weight 74.8 kg (165 lb) 05/27/2015 5:55 PM CDT Height - - Body Mass Index - - Plan of Treatment Health Maintenance Due Date Last Done Comments DTAP/TDAP/TD VACCINES (1 - Tdap) 1982 HPV/Cotest (21-29) 1984 CERVICAL CANCER SCREENING 1993 HPV/Cotest (30-65) 1993 PAP SMEAR 1993 BREAST CANCER SCREENING 2003 COLORECTAL SCREENING 2008 Colorectal Cancer Screening 2008 FIT-DNA Q 3 years 2008 FIT/FOBT Q 1 year 2008 Flex Sig/CT Colonography Q 5 years 2008 ZOSTER VACCINE (1 of 2) 2013 INFLUENZA VACCINE (#1) 2025 RSV VACCINE (60+ or ) (1 - 1-dose 75+ series) 2038
--- OUTSIDE RECORDS SUMMARY | 2025-07-21 18:29 | XMS_ITS | Clinical Summary ---
Author Organization [facility] Address [address] [facility] Attn: Epic Prelude ADT LILIANE NEAL [address] Care Team Providers Care Dynamotor Repairer Name Role Phone Unavailable Primary Care Provider Unavailabl e Allergies No known active allergies Social History Tobacco Use Types Packs/Day Years Used Date Smoking Tobacco: Every Day Cigarettes Alcohol Use Standard Drinks/Week Comments No 0 (1 standard drink = 0.6 oz pur e alcohol) Comments Unknown Sex and Gender Information Value Date Recorded Sex Assigned at Not on file 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
--- OUTSIDE RECORDS SUMMARY | 2025-07-21 18:29 | XMS_ITS | Encounter Summary ---
Author Organization [facility] Address [address] [place] [address] Care Team Providers Care Geothermal Technician Name Role Phone Unavailable Primary Care Provider Unavailabl e Encounter Details Date Type Department Care Team (Latest Contact Info) Description 08/13/1998 Outpatient Historical [facility] Dermatology- [facility] [place] [address] [place] [address] Deshawn De La Cruz MD NO ADDRESS ON FILE Benign nidhi skin trunk (Primary Dx) Social History Tobacco Use Types Packs/Day Years Used Date Smoking Tobacco: Never Assessed Comments Unknown Sex and Gender Information Value Date Recorded Sex Assigned at Not on file Legal Sex Female 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
--- OUTSIDE RECORDS SUMMARY | 2025-07-21 18:29 | XMS_ITS | Encounter Summary ---
Author Organization [facility] Address [address] 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
--- OUTSIDE RECORDS SUMMARY | 2025-07-21 18:29 | XMS_ITS | Data Portability ---
Author Organization LILIANE Mynor Szymanski [facility] [place], [facility] Address [address] [facility] [address] [place] [address] Assessment No assessment recorded. Plan of Treatment Reminders Order Date Submit Date Provider Last Modified By Organization Details Last Modified Time Details Appointments FRENCH OV 2024 09:30A Aydee French MD Not available Not available Not available Lab thyrotrop in, QN, serum or plasma 2024 025 [facility], [address], [place], [address], 03/23/2025 13:04:18 HbA1c (hemoglob in A1c), blood 2024 025 0 [facility], [address], [address], [place], [address], 03/31/2025 08:20:17 microalbu min, urine 2024 025 [facility], [address] [facility] [place], [address], 03/24/2025 09:33:29 CMP, serum or plasma 2023 024 MARBLE ROCK [facility], [address], [address], [place], [address], 09/15/2024 11:22:06 lipid panel, blood 2023 024 DAVE [facility], [address], [address], [place], [address], 09/15/2024 11:22:09 hemoglobi n A1C/hemog lobin total, QN, blood [facility]23 [facility], [address], [address], [place], [address], 09/15/2024 11:17:22 HbA1c (hemoglob in A1c), blood 2023 025 [email or web address] 0 [facility] ([facility]), [address] [place] [address], [phone], 01/05/2025 08:27:23 hemoglobi n A1C/hemog lobin total, QN, blood 2023 024 DAVE [facility], [address], [address], [place], [address], 06/19/2024 11:08:41 CMP, serum or plasma 2023 024 [email or web address] 0 [facility], [address], [address], [place], [address], 06/30/2024 12:16:22 HbA1c (hemoglob in A1c), blood 2023 024 [email or web address] [facility] ([facility]), [address] [place], [address], 12/14/2024 18:54:56 Referral None recorded. Procedures colonosco py procedure (PROC) 2023 024 [facility] Not available 03/25/2024 14:15:17 colonosco py, with removal of tumor, polyp or lesion (PROC) 2023 024 [id number] [facility], [address] , [place], [address], 03/24/2024 10:18:00 Surgeries None recorded. Imaging MAMMO, screening , digital, bilateral 2024 025 [facility] (Scheduling Orders), [address], [place], [address], 04/01/2025 17:40:50 Medication Orders lisinopri l 5 mg tablet 2023 024 0 [facility] #[id number], [address], [address], [place], [address], 03/23/2025 10:52:48 Ozempic 0.25 mg or 0.5 mg (2 mg/1.5 mL) subcutane ous pen injector 2023 024 DAVE [facility] #[id number], [address], [facility] [address], [place], [address], 03/20/2024 11:31:26 Patient TargetsNo targets recorded. Patient Instructions Encounter Date Encounter Id Patient Instructions Last Modified By Organization Details Last Modified Time 03/19/2024 [id number] colonoscopy prep - miralax Not available 03/19/2024 16:53:48 colonoscopy education Not available 03/19/2024 16:53:48 colonoscopy education Not available 03/19/2024 16:53:49 Reason for Referral None Reported. Results Created Date Observation Date Name Description Value Unit Range Abnormal Flag Note LastModifiedBy Organization Detail LastModifiedTime 06/19/2006/19/2024 HBA1C hemaglobin A1C 5.8 4.2-6. 5 Not Available [facility] [address] [facility] [address], [place], [address], 06/19/2024 11:08:41 09/15/20 24 09/15/2024 HBA1C hemaglobin A1C 6.0 4.2-6. 5 Not Available [facility] [address] [facility] [address], [place], [address], 09/15/2024 11:17:22 09/15/20 24 09/15/2024 CMP (FEMA LE) glucose 109.0 mg/dL 60.0-9 9.0 high Not Available [facility] [address] [facility] [address] [facility] [address], [place], [address], 09/15/2024 11:22:06 09/15/20 24 09/15/2024 CMP (FEMA LE) BUN (blood urea nitrogen) 17.0 mg/dL 10.0-2 6.0 Not Available [facility] [address] [facility] [address], [place], [address], 09/15/2024 11:22:06 09/15/20 24 09/15/2024 CMP (FEMA LE) creatinine (serum) 0.7 mg/dL 0.4-1. 5 Not Available [facility] [address] [facility], [place], [address], 09/15/2024 11:22:06 09/15/20 24 09/15/2024 CMP (FEMA LE) BUN/creatini ne ratio 24.29 ratio Not Available [facility] [address] [facility], [place], [address], 09/15/2024 11:22:06 09/15/20 24 09/15/2024 CMP (FEMA LE) eGFR calculated 90.4 Not Available [facility] [address] [facility] [address] [facility] 1, [place], [address], 09/15/2024 11:22:06 09/15/20 24 09/15/2024 CMP (FEMA LE) total protein 8.3 g/dL 6.0-8. 5 Not Available [facility] [address] [facility] 1, [place], [address], 09/15/2024 11:22:06 09/15/20 24 09/15/2024 CMP (FEMA LE) total bilirubin 0.8 mg/dL 0.2-1. 3 Not Available [facility] [address] [facility] [address] [facility] 1, [place], [address], 09/15/2024 11:22:06 09/15/20 24 09/15/2024 CMP (FEMA LE) albumin 4.9 g/dL 3.5-5. 5 Not Available [facility] [address] [facility], [place], [address], 09/15/2024 11:22:06 09/15/20 24 09/15/2024 CMP (FEMA LE) globulin 3.4 calc Not Available [facility] [address] [facility] [address], [place], [address], 09/15/2024 11:22:06 09/15/20 24 09/15/2024 CMP (FEMA LE) AST (SGOT) 29.0 U/L 0.0-46 .0 Not Available [facility] [address] [facility], [place], [address], 09/15/2024 11:22:06 09/15/20 24 09/15/2024 CMP (FEMA LE) altv (SGPT) 30.0 U/L 13.0-6 9.0 normal Not Available [facility] [address] [facility] 1, [place], [address], 09/15/2024 11:22:06 09/15/20 24 09/15/2024 CMP (FEMA LE) A/G ratio 1.4 ratio Not Available [facility] [address] [facility] 1, [place], [address], 09/15/2024 11:22:06 09/15/20 24 09/15/2024 CMP (FEMA LE) ALP phos 92.0 U/L 30.0-1 40.0 normal Not Available [facility] [address] [facility] [address], [place], [address], 09/15/2024 11:22:06 09/15/20 24 09/15/2024 CMP (FEMA LE) calcium 9.7 mg/dL 8.4-10 .5 Not Available [facility] [address] [facility] [address], [place], [address], 09/15/2024 11:22:06 09/15/20 24 09/15/2024 CMP (FEMA LE) sodium 139.0 mmol/ L 136.0- 145.0 Not Available [place] [facility] [address] [facility] [address], [place], [address], 09/15/2024 11:22:06 09/15/20 24 09/15/2024 CMP (FEMA LE) potassium 4.5 mmol/ L 3.5-5. 1 Not Available [place] [facility] [address] [facility] 1, [place], [address], 09/15/2024 11:22:06 09/15/20 24 09/15/2024 CMP (FEMA LE) chloride 105.0 mmol/ L 98.0-1 10.0 normal Not Available [facility] [address] [facility] 1, [place], [address], 09/15/2024 11:22:06 09/15/20 24 09/15/2024 CMP (FEMA LE) C02 26.0 mmol/ L 22.0-3 1.0 Not Available [facility] [address] [facility] [address], [place], [address], 09/15/2024 11:22:06 09/15/20 24 09/15/2024 CMP (FEMA LE) anion gap 8.0 calc Not Available [facility] [address] [facility] [address], [place], [address], 09/15/2024 11:22:06 09/15/20 24 09/15/2024 CMP (FEMA LE) osmolality 289.1 calc Not Available [facility] [address] [facility] [address], [place], [address], 09/15/2024 11:22:06 09/15/20 24 09/15/2024 LIPID PROFI LE (FEMA LE) cholesterol 178.0 mg/dL 0.0-20 0.0 Not Available [facility] [address] [facility] [address], [place], [address], 09/15/2024 11:22:09 09/15/20 24 09/15/2024 LIPID PROFI LE (FEMA LE) trig 65.0 mg/dL 0.0-15 0.0 Not Available [place] [facility] [address] [facility] [address], [place], [address], 09/15/2024 11:22:09 09/15/20 24 09/15/2024 LIPID PROFI LE (FEMA LE) HDL - direct 63.0 mg/dL >40.0 Not Available [facility] [address] [facility] [address], [place], [address], 09/15/2024 11:22:09 09/15/20 24 09/15/2024 LIPID PROFI LE (FEMA LE) VLDL - direct 13.0 mg/dL Not Available [facility] [address] [facility] [address], [place], [address], 09/15/2024 11:22:09 09/15/20 24 09/15/2024 LIPID PROFI LE (FEMA LE) LDL - direct 102.0 mg/dL 0.0-13 0.0 Not Available [place] [facility] [address] [facility] 1, [place], [address], 09/15/2024 11:22:09 03/23/20 25 03/23/2025 HBA1C hemaglobin A1C 5.6 4.2-6. 5 Not Available [facility] [address], [place], [address], 03/23/2025 11:32:02 03/23/20 25 03/23/2025 TSH TSH 0.64 uIU/m L 0.49-3 .82 normal Not Available [facility] [address], [place], [address], 03/23/2025 13:04:18 03/23/20 25 03/24/2025 ALBUM IN, RANDO M URINE W/O CREAT ININE albumin, urine 0.3 mg/dL see note: normal Refer ence Range : Refer ence Range Not estab lishe d Not Available [facility] [address] [place], [address], 03/24/2025 09:33:29 03/23/20 25 03/24/2025 ALBUM IN, RANDO M URINE W/O CREAT ININE MAGO The ADA defin es abnor malit ies in album in excre tion as follo ws: Album inuri a Categ ory Resul t (mg/g creat inine ) Gertrude l to Mildl y incre ased <30 Moder ately incre ased 30-29 9 Sever maryann incre ased > OR = 300 The ADA recom mends that at least two of three speci mens colle cted withi n a 3-6 month perio d be abnor mal befor e consi jamison g a patie nt to be withi n a diagn ostic categ ory. Not Available [facility] [address] [place], [address], 03/24/2025 09:33:29 05/01/20 24 05/01/2024 colon oscop y, with remov al of tumor , polyp or lesio n (PROC ) No observ ation record ed. [email or web address] [facility] [address] , [place], [address], 05/04/2024 21:30:38 Result Notes None recorded. Problems Name Problem SNOMED Code Status Onset Date Resolution Date Notes Provider Name and Address Organization Details Recorded Time Type 2 diabetes mellitus 68287933 Active 2023 NEVA martínez [facility] 4 08:15:53 Hypertensive disorder 66496598 Active 2023 NEVA martínez [facility] 4 08:15:59 Tubular adenoma 917354865 Active 2023 NEVA martínez [facility] 4 08:16:09 Anemia 899404355 Active 2023 NEVA martínez [facility] 4 08:16:17 Insomnia 462372823 Active 2023 NEVA martínez [facility] 4 08:16:25 Atopic dermatitis 52270852 Active 2023 NEVA martínez [facility] 4 08:16:33 Hemorrhoids 19942910 Active 2023 NEVA martínez [facility] 4 08:16:42 Actinic keratosis 898404454 Active 2023 NEVA martínez [facility] 4 08:16:53 Essential hypertension 10343363 Active 2023 Alina French MD [address] [place] [address], [phone], [facility] 4 10:21:23 Problem Notes None recorded. Procedures Surgical History Date Name Laterality Status Provider Name and Address Organization Details Recorded Time 03/23/20 25 Cryo Lesion-#1 completed Alina French MD [address] [place] [address], [phone], [facility] 03/23/2025 11:11:46 09/15/20 24 jr cryo warts completed Alina French MD [address] [place] [address], [phone], [facility] 09/22/2024 14:04:05 05/01/20 24 Colonoscopy completed ALBERTOFAVIAN BATEMAN [facility], [facility] 05/01/2024 19:13:13 04/24/20 22 mammography completed [facility], [facility] 02/05/2024 08:19:49 08/03/20 17 colonoscopy completed [facility], [facility] 02/05/2024 08:19:11 destruction of lesion of uterus completed [facility], [facility] 02/05/2024 08:18:32 cholecystectomy completed [facility] 02/05/2024 08:18:38 sampling of cervix for Papanicolaou smear completed [facility], [facility] 02/05/2024 08:19:27 Imaging Results None recorded. Procedure Notes None recorded. Medical Equipment None Reported. Allergies No known drug allergies Medications Name Sig Start Date Stop Date Status Note LastModified by Organization Details LastModified Time atorvastati n 20 mg tablet TAKE 1 TABLET BY MOUTH EVERY DAY IN THE EVENING FOR 30 DAYS 06/19 completed Not Available Not Available Not Available metoprolol tartrate 100 mg-hydrochl orothiazide 25 mg tablet TAKE 1 TABLET BY MOUTH EVERY DAY 2024 active Not Available Not Available Not Avai lable lisinopril 5 mg tablet Take 1 tablet every day by oral route for 30 days. 09/15 completed BP dropp ed. MARIEL Not Available Not Available Not Available Ozempic 0.25 mg or 0.5 mg (2 mg/1.5 mL) subcutaneou s pen injector Inject 0.25 mg every week by subcutane ous route. 2023 active French Not Available Not Available Not Avai lable OneTouch Ultra2 Meter USE ONCE DAILY TO CHECK BLOOD SUGAR LEVELS 2023 active Not Available Not Available Not Avai lable Ozempic 0.25 mg or 0.5 mg (2 mg/3 mL) subcutaneou s pen injector INJECT 0.25 MG EVERY WEEK SUBCUTANE OUSLY 03/16 completed French Not Available Not Available Not Available Vitals Date Recorded Body height Body mass index (BMI) Body weight Body temperature Oxygen saturation Oxygen saturation in Arterial blood by Pulse oximetry Heart rate Systolic And Diastolic Provider Name and Address Organization Details Last Updated DateTime 5 162.56 cm 26.6 kg/m2 13851.8 2 g 98.1 [degF] 98 % 98 % 67 /min 150/100 mm[Hg] NEVA CANCHOLA [facility] 5 11:51:02 Date Recorded Body height Body mass index (BMI) Body weight Respiratory rate Heart rate Oxygen saturation Oxygen saturation in Arterial blood by Pulse oximetry Body temperature Systolic And Diastolic Provider Name and Address Organization Details Last Updated DateTime 4 162.56 cm 28.9 kg/m2 01897.3 2 g 18 /min 85 /min 97 % 97 % 98.8 [degF] 126/78 mm[Hg] ALBERTO BATEMAN [facility] 4 15:57:29 Date Recorded Body height Body mass index (BMI) Body weight Body temperature Oxygen saturation Oxygen saturation in Arterial blood by Pulse oximetry Heart rate Systolic And Diastolic Provider Name and Address Organization Details Last Updated DateTime 4 162.56 cm 28.8 kg/m2 31100.5 2 g 97.8 [degF] 97 % 97 % 94 /min 130/74 mm[Hg] MARK NELSON [facility] 4 11:05:15 Date Recorded Body height Body mass index (BMI) Body weight Body temperature Oxygen saturation Oxygen saturation in Arterial blood by Pulse oximetry Heart rate Systolic And Diastolic Provider Name and Address Organization Details Last Updated DateTime 5 162.56 cm 26.6 kg/m2 98013.8 2 g 98.2 [degF] 97 % 97 % 71 /min 137/90 mm[Hg] NEVA JORGE JESIKA [facility] 5 10:25:27 Date Recorded Body height Body mass index (BMI) Body weight Body temperature Oxygen saturation Oxygen saturation in Arterial blood by Pulse oximetry Heart rate Systolic And Diastolic Provider Name and Address Organization Details Last Updated DateTime 4 162.56 cm 27.1 kg/m2 00713.5 9 g 97.5 [degF] 97 % 97 % 73 /min 158/90 mm[Hg] NEVA JORGE JESIKA [facility] 4 09:59:26 Date Recorded Body height Body mass index (BMI) Body weight Body temperature Oxygen saturation Oxygen saturation in Arterial blood by Pulse oximetry Heart rate Systolic And Diastolic Provider Name and Address Organization Details Last Updated DateTime 4 162.56 cm 26.9 kg/m2 29496 g 98.1 [degF] 97 % 97 % 77 /min 140/80 mm[Hg] NEVA JORGEIsabella CANCHOLA [facility] 4 09:49:13 Social History Question Answer Notes LastModified by [facility] Details LastModified Time Tobacco Smoking Status Never Smoker MARK NELSON [facility] 02/05/2024 17:07:26 What Was The Date Of Your Most Recent Tobacco Screening? 03/16/2025 [email or web address] Information not available 03/16/2025 Sex: Unknown Functional Status Question Answer Note LastModified by [facility] Details LastModified Time Do you use any illicit or recreational drugs? No [email or web address] Information not available 02/05/2024 What is your level of alcohol consumption? None [email or web address] Information not available 02/05/2024 Mental Status None recorded. Family History Relationship Description Onset Age of this Age Resolved Age Notes LastModified by Organization Details LastModified Time Mother Hypertensive disorder [email or web address] Not available 01/22 08:17:11 Father Coronary arterioscler osis diabet es [email or web address] Not available 02/05/2024 08:17:24 Maternal Grandmother Malignant neoplasm of colon [email or web address] Not available 2023 15:48:23 Medical History Condition Response Coronary Artery Disease N Other N Gout N Kidney Stones N Blood Diseases N Hyperthyroidism N Breast Cancer N Blood Transfusion N Hypothyroidism N Depression N COPD N Lung Disease N Defects or Inherited Disease N Developmental or Behavioral Disorders N Breast Problem N Difficulty Swallowing N Anesthesia Complications N Anxiety Disorder N Meniere's disease N Muscle, Joint, or Bone Problems N Vision or Eye Problems N Arthritis N Polyps N Infertility N Cancer N Varicosities N Stroke N Endometriosis N Bladder or Kidney Problems N High Cholesterol N Liver Disease N Headaches N Fibromyalgia N Kidney Disease N Allergies/Hayfever N Heart Problems N Ear or Hearing Problems N Hospitalizations N Thyroid Problems N GI Problems N ADD/ADHD N Skin Problems Y Eating Disorder N Anemia Y Constipation N Mental Illness N Ovarian Cancer N Diabetes Y Bedwetting N Seizures/Epilepsy N Tuberculosis N Eczema N Diverticulitis N Abuse/Domestic Violence N Asthma N Reflux/GERD N Hepatitis N Heart Disease N Pulmonary Embolism N Chronic Ear Infections N Pre-Eclampsia N Hypertension Y Chicken Pox N Autism Spectrum Disorder (ASD) N Osteoporosis N Thrombophilias N Gynecological History Statement/Question Response Date of Last Pap Smear Obstetrics History GPAL:G 4 P 2 0 2 2 Type Value Full Term 2 Spontaneous 2 Living 2 Total 4 Immunizations Vaccine Type Date Status Note Provider Nam e and Address Organization Details Recorded Time Influenza, split virus, quadrivalent, preservative 9 completed ALBERTO martínez [facility] 03/19/2024 15:47:14 Influenza, MDCK, quadrivalent, PF 2 completed ALBERTO martínez [facility] 03/19/2024 15:47:15 Influenza, MDCK, quadrivalent, PF 0 completed ALBERTO BATEMAN null, [facility] 03/19/2024 15:47:15 COVID-19, mRNA, LNP-S, PF, 100 mcg/0.5mL dose or 50 mcg/0.25mL dose 1 completed ALBERTO GUSMANY null, [facility] 03/19/2024 15:47:15 COVID-19, mRNA, LNP-S, PF, 100 mcg/0.5mL dose or 50 mcg/0.25mL dose 1 completed ALBERTO GUSMANY null, [facility] 03/19/2024 15:47:15 Influenza, split virus, trivalent, preservative 3 completed ALBERTO GUSMANY null, [facility] 03/19/2024 15:47:15 Influenza, split virus, quadrivalent, PF 8 completed ALBERTO FRANSICO null, [facility] 03/19/2024 15:47:15 Influenza, split virus, quadrivalent, PF 1 completed ALBERTO BATEMAN null, [facility] 03/19/2024 15:47:15 Influenza, split virus, trivalent, PF 4 completed Not Available [facility] 03/23/2025 09:55:27 Influenza, split virus, trivalent, preservative 6 completed Not Available [facility] 04/21/2023 02:33:11 Past Encounters Encounter ID Performer Location Encounter Start Date Encounter Closed Date Diagnosis/Indication Diagnosis SNOMED-CT Code Diagnosis ICD10 Code Diagnosis IMO Codes Diagnosis Note [id number] Alina French MD [facility] ([facility]) [address] [place] [phone] 02/05/2024 17:01:47 02/10/2024 19:22:06 Hyperlipidemia screening 604710604 Z13.220 Type 2 ariela betes mellitus 34998653 E11.9 Screening mammography 24 966389 Z12.31 Screening for malignant neoplasm of colon 616169138 Z12.11 pt agreeable to updating colonoscop y Screening for malignant neoplasm of cervix 973668458 Z12.4 pt was advised to f/u for pap exam. Essential hypertension 41860009 I10 BP a little borderline but can cont her 1/2 tab as she has been doing. Adult heal th examination 361629706 Z00.00 [id number] Alina French MD [facility] ([facility]) [address] [place] [id number] 02/19/2024 10:24:59 02/19/2024 15:54:31 Uncontrolled type 2 diabetes mellitus 375220763 E11.65 At [facility] ed risk for cardiovascular event 355777589 Z91.89 dm, htn Essential hypertension 10831057 I10 consider LENARD/ARB next visit. just added two new meds. Ptosis of eyelid 6549095 0 H02.409 Right. advised she see optometry [id number] Jose Phillips MD [facility] ([facility]) [address] [place] [id number] 03/19/2024 14:52:26 03/19/2024 16:57:07 History of polyp of colon 879681879 Z86.937 [id number] Alina French MD [facility] ([facility]) [address] [place] [phone] 03/20/2024 10:42:09 03/20/2024 11:44:57 Type 2 diabetes mellitus 60200956 E11.9 she has been on the ozempic 2 weeks. no problem with the ozempic, she is on the 0.25 and her sugars are mostly at goal. I recommend staying with the same dose and rechecking A1C in 3 months. 03/20/24 Hypertensive disorder 38 025843 I10 controlled . At [facility] ed risk for cardiovascular event 173911980 Z91.89 dm, htnpt did not start the atorvastat in yet but she plans to. [id number] Alina French MD [facility] ([facility]) [address] [place] [phone] 06/19/2024 09:52:25 06/20/2024 11:14:11 Type 2 diabetes mellitus 57952151 E11.9 Check hemoglobin A1c 06/19/2024 Essential hypertension 47049478 I10 I discussed kidney protection with the patient. She also needs a little something for her blood pressures which have been elevated. We will start her on lisinopril 5 mg daily. 06/19/2024 Screening mammography 24 297398 Z12.31 Pt. said she will sched her own mammo. [id number] Alina French MD [facility] ([facility]) [address] [place] [id number] 09/15/2024 09:34:31 09/15/2024 13:30:05 Hypertensive disorder 39736621 I10 controlled . Type 2 ariela betes mellitus 32888830 E11.9 Actinic keratosis 194522 007 L57.0 right forearm. cryo done. 09/15/24 Hyperlipid emia screening 253934891 Z13.258 [id number] Alina French MD [facility] ([facility]) [address] [place] [id number] 03/23/2025 09:54:18 03/24/2025 09:38:36 Hypertensive disorder 65362407 I10 137/90. nnot too bad. 03/23/25 Type 2 ariela betes mellitus 08016796 E11.9 due for hgA1C. 03/23/25 Screening mammography 24 666470 Z12.31 [id number] Pt. said she will sched her own mammo. Loss of hair 424835515 L 65.9 [id number] hairdresse r mentioned it. 03/23/25 Actinic keratosis 007 L57.0 49098 right forearm. cryo done. 09/15/24 different lesion rt forearm. old spot well healed. 03/23/25 Pain in hallux 998871671 M79.675 [id number] intermitte nt, not botherinig her today and exam wnl 03/23/25 Health Concerns Section Related Observation LastModified by Organization Detai ls LastModified Time None Recorded Concern Status LastModified by Organization Details LastModified Time None Recorded Advance Directives Directive None Recorded Payers Insurance Date Sequence Insurance Name Policy Number Policy Mcgrath Covered Member ID Mcgrath Member ID Guarantor Name 03/23/2025 1 [employer] [facility] (O) [id number] Ching Mendiola [id number] Ching Mendiola 09/12/2024 1 [facility] [employer] - 90 DEGREE BENEFITS [facility] PROVIDER NETWORK (PPO) [id number] Ching Mendiola [id number] Ching Mendiola Notes Date Note Type Note Provider Name and Address Organization Details Recorded Time 4 text/html Colonoscopy ScreeningReported by PatientColonoscopy ScreeningFor context, patient reportsprior examinationandhistory of colon polyps. For family history, patient reportscolon cancer. For gi symptoms, patient reportsno abdominal pain,no diarrhea,no constipation,no recent change in bowel movements,no change in the stool,no color change in stool, andno rectal bleeding. For associated symptoms, patient reportsnormal appetite. The patient presents today at the request of Dr. French for evaluation and discussion of colonoscopy for personal history of colon polyps. The patient denies any recent abdominal pain, persistent diarrhea, persistent constipation, bloody or dark tarry stools, or mucusy stools. Last Colon Cancer screenin08/03/2017 Problems with anesthesia in the past: NONE Family History of Colon cancers: NONE Blood Thinners: NONE Co-morbidities: Jose Phillips MD [address] [place] [address], [phone], [facility] 03/19/2024 16:54:29 4 text/html Care Management - DiabetesReported by PatientHPIFor associated symptoms, patient reportssymptoms are usually well controlled,no fatigue,no dizziness,no excessive sweating, andno headaches. sugars have been way downleft log on table at home unfortunatelyit has been down a lot - highest was 143, lowest was 119 Alina French MD [address] [place] [address], [phone], [facility] 03/20/2024 11:42:23 4 text/html DiabetesReported by PatientHPIFor duration, patient reportschronic. For control, patient reportsusually well controlled. For compliance, patient reportscompliant with medications,compliant with follow-up visits,compliant with physical activity, andcompliant with home glucose monitoring. Hypertension IM/FMReported by PatientHPIFor self care, patient reportsunder emotional stressbut reportsnon-smoker. For associated symptoms, patient reportsfatiguebut reportsno shortness of breath. For quality, patient reportshere for check-up. For alleviating factors, patient reportsmedication.ROS as noted in the HPI I forgot to take my bp med yesterday and took it on my way today. It has been a little high at home when I have been taking it. My sugar has been really good and then it started going up a bit first thing in the morning before eating or drinking anything. You did tell me that we could go up, but I have been staying on the low dose I have not adjusted yet. Alina French MD [address] [place] [address], [phone], [facility] 06/25/2024 14:55:50 4 text/html Hypertension IM/FMReported by PatientHPIFor self care, patient reportsunder emotional stress. For quality, patient reportshere for check-upandfatigue. For context, patient reportsemotional stress. For alleviating factors, patient reportsmedication. For associated symptoms, patient reportsno shortness of breath.ROS as noted in the HPI not taking the isinopril...I just felt like I had the flu or something, I felt really bad....so not taking the lisinopril was 88/50as soon as I quit taking it I felt hiwhyl552/70 myitzobcu526/77 runs well at home.there are some days when it is higher 136/86. has a spot on her right forearm that wont go away. Alina French MD [address] [place] [address], [phone], [facility] 09/22/2024 14:05:25 5 text/html Hypertension IM/FMReported by PatientHPIFor quality, patient reportshere for check-up. For alleviating factors, patient reportsmedication. For self care, patient reportsnot under emotional stress. For associated symptoms, patient reportsno shortness of breathandno palpitations.ROS as noted in the HPI skin spot on right arm popped up about 1 month ago her left toe hurts now and then, her brother has gout. Alina French MD [address] [place] [address], [phone], [facility], [place] 03/23/2025 11:16:47 OBGyn Episode No OBEpisode recorded.
--- OUTSIDE RECORDS SUMMARY | 2025-07-21 18:29 | XMS_ITS | Encounter Summary ---
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 Name Role Phone Unavailable Primary Care Provider Unavailabl e Encounter Details Date Type Department Care Team (Latest Contact Info) Description 12/01/1999 Outpatient Historical [facility] Dermatology- [facility] [address] [place] [address] Deshawn De La Cruz MD NO ADDRESS ON FILE Sebaceous cyst (Primary Dx); Benign nidhi skin trunk Social History Tobacco Use Types Packs/Day Years Used Date Smoking Tobacco: Never Assessed Comments Unknown Sex and Gender Information Value Date Recorded Sex Assigned at Not on file Legal Sex Female 2:58 AM [employer] Gender Identity Not on file Sexual Orientation Not on file documented as of this encounter Plan of Treatment Not on file documented as of this encounter Visit Diagnoses Diagnosis Sebaceous cyst- Primary Benign nidhi skin trunk Benign neoplasm of skin of trunk, except scrotum documented in this encounter
[2025-07-21 19:19] VITALS: BP 165/91; PULSE 76; PULSE 82; O2SAT 100; O2SAT 99
--- NOTE | 2025-07-21 19:37 | W.ED.GENADLT ---
HPI - General Adult General: Chief complaint: General Medical Stated complaint: Loss of hearing in RT ear, No feeling in LT arm Time Seen by Provider: 07/21/25 19:16 Source: patient Mode of arrival: ambulatory Limitations: no limitations History of Present Illness: Patient is a 60-year-old female presents to ED today along with her significant other for medical evaluation of an episode that occurred approximately 2 hours ago. Patient states she was seated in a basketball gymnasium when she began feeling weak and warm. She feels like her right ear immediately began like she could not hear out of it. She states the ear was painful the day before. She was not complaining of tinnitus. She also felt like at that same time her left arm went numb to the point where she had to use her right arm to move it. She states episode lasted a total of 2 to 3 minutes before subsiding. She states she has been asymptomatic since. No vertigo. She does not complain of a headache. PMH significant for diabetes and HTN. Patient is asymptomatic at time of my examination. NIH 0. Onset (ago): hour(s) Location: left and upper extremity Relieving factors: none Exacerbating factors: none Associated symptoms: Reports no associated symptoms; Deny chest pain, dyspnea, headache(s), malaise, nausea, rash, palpitations, syncope or vomiting Treatments prior to arrival: none Related Data Home Medications ?Medication ?Instructions ?Recorded ?Confirmed empagliflozin 10 mg tablet 10 mg PO QAM 11/17/20 01/01/21 (Jardiance) metformin 750 mg tablet,extended 1,500 mg PO QPM 11/17/20 01/01/21 release 24 hr metoprolol tartrate 100 1 tab PO QAM 11/17/20 01/01/21 mg-hydrochlorothiazide 25 mg tablet naproxen 1 tab PO PRN 11/17/20 01/01/21 Held on 11/19/20. Instructions: Resume on 12/03/20. triamcinolone acetonide 0.1 % 1 applic topical PRN 11/17/20 01/01/21 topical ointment Previous Rx's ?Medication ?Instructions ?Recorded lidocaine HCl 2 % mucosal jelly 1 applic topical TID PRN pain #30 12/21/20 mL Allergies Allergy/AdvReac Type Severity Reaction Status Date / Time No Known Allergies Allergy Verified 01/01/21 10:57 Review of Systems Const: Denies: fever(s), chills, body aches, fatigue or malaise Eyes: Denies: change in vision, blurry vision, photophobia, floaters or seeing flashes ENMT: Reports: ear or mastoid pain (R ear-yesterday) and change in hearing (during episode lasting a few mins-resolved now); Denies: throat pain, odynophagia, ear discharge, tinnitus, disequilibrium, nasal discharge or nasal congestion Card: Denies: chest pain, palpitations, irregular heart rhythm, lightheadedness, syncope or dyspnea on exertion Resp: Denies: dyspnea, productive cough or pain on inspiration GI: Denies: abdominal pain, nausea, vomiting, heartburn or diarrhea : Denies: dysuria Musc: Denies: neck pain, back pain, extremity pain, extremity swelling or joint pain Skin/Breast: Denies: rash Neuro: Reports: numbness in extremities (L arm during episode-resolved now) and weakness in extremities (L arm during episode-resolved now); Denies: headache(s) or dizziness PFSH ED PFSH: Medical History Acute cholecystitis Diabetes HTN (hypertension) Surgical History No pertinent past surgical history Family History Father CAD (coronary artery disease) Lung disease Social History Smoking and tobacco/nicotine status: never used tobacco/nicotine Alcohol intake: never Substance/Drug Use: never Physical Exam Const: COMMON NORMALS: no acute distress, average body habitus, patient oriented x3, no limitations, healthy appearing, alert and well nourished GENERAL APPEARANCE: cooperative ORIENTATION/CONSCIOUSNESS: Yes awake, Yes oriented to person, Yes oriented to place and Yes oriented to time HENMT: COMMON NORMALS: normocephalic, atraumatic, external ears normal and EAC's normal HEAD & SCALP: normal to inspection, normocephalic and atraumatic FACE & SINUS: normal facial exam and face symmetric EXTERNAL EAR: Yes external ears normal, Yes mastoids normal and Yes no periauricular adenopathy EXTERNAL AUDITORY CANAL: EAC's normal TYMPANIC MEMBRANE: TM abnormal TM laterality: right Details: effusion Eye: COMMON NORMALS: Equal, round and reactive pupils present and EOMs intact bilaterally GENERAL EYE: appearance normal, both eyes and all related structures and normal light reflex PUPIL: Yes Equal, round and reactive pupils present DIRECT OPHTHALMOSCOPY: Yes normal light reflex Neck/C-Spine: COMMON NORMALS: full ROM, no lymphadenopathy, supple and no meningeal signs Chest: COMMONS NORMALS: normal inspection of the chest Resp: COMMON NORMALS: normal respiratory effort and clear to auscultation bilaterally AUSCULTATION: clear to auscultation bilaterally Cardio: COMMON NORMALS: regular rate and regular rhythm RATE: regular rate RHYTHM: regular rhythm GI: COMMON NORMALS: Normal to inspection, nondistended, normoactive bowel sounds present, Soft to palpation, non-tender, No hepatosplenomegaly present and no masses PALPATION: Yes Soft to palpation and Yes No hepatosplenomegaly present : COMMON NORMALS: Yes no CVA tenderness BLADDER/KIDNEY EXAM: Yes no CVA tenderness Back/Pelvis: COMMON NORMALS: no CVA tenderness and thoracic and lumbar spine normal to inspection Extremity: COMMON NORMALS: normal to inspection, full ROM, capillary refill normal and no clubbing, cyanosis or edema GENERAL: Yes normal exam except as noted Neuro: GERARD COMA SCALE: document GCS findings [place] coma scale eye opening: Spontaneous [place] coma scale verbal response: Orientated [place] coma scale motor response: Obey commands Gerard coma scale total score: 15 COMMON NORMALS: patient oriented x3, CN's II-XII intact bilaterally, moves all extremities, no focal motor deficits, no sensory deficits noted and gait normal SENSORIUM/ORIENTATION: Yes alert, Yes oriented to person, Yes oriented to place and Yes oriented to time MENINGEAL SIGNS: Yes no meningeal signs SPEECH: speech normal GAIT: Yes Normal gait present MOTOR EXAM: 5/5 motor strength present throughout Skin: COMMON NORMALS: no rashes or lesions noted GENERAL SKIN EXAM: no rashes or lesions noted Course Consultations: Consultation #1: Dr. Georges-recommending CT head, CTA head/neck; did not feel stroke alert needed to be called as her NIH is 0; if imaging negative-recommending an aspirin daily and follow up with PCP Vital Signs: Vital signs: Vital Signs Temperature 97.6 F 07/21/25 18:17 Pulse Rate 95 07/21/25 21:00 Respiratory Rate 18 07/21/25 18:17 Blood Pressure 153/90 07/21/25 21:00 Pulse Oximetry 98 07/21/25 21:00 Oxygen Delivery Me thod Room Air 07/21/25 21:00 MDM - General Adult Medical Decision Making Patient is a nice 60-year-old female here for a 2 to 3-minute episode of right sided hearing loss on the left arm motor weakness/sensory loss. NIH upon arrival is 0. I had spoken to Dr. Georges who is concerned about a possible A[place] stroke with the hearing loss. She had recommended CT head and CTA head/neck. She felt like if these were negative she could be started on a daily aspirin and follow-up with primary care. She did not feel we needed to activate stroke alert as her NIH was 0. These images were negative so she will be allowed discharge home. Medical Records I reviewed the patient's medical records. Lab Data I reviewed the patient's lab results. 07/21/25 20:41 07/21/25 20:[address] 07/21/25 19:40 IMPRESSION: 1. No acute intracranial abnormality. ASSESSMENT: ASPECTS ([place] Stroke Program Early CT Score) is 10. ADDENDUM: 07/21/252011 The findings were verbally communicated by telephone with Dr. CROW at 8:11 PM CDT on 07/21/2025. Head/Neck CTA 07/21/25 19:41 IMPRESSION: 1. No evidence of large vessel occlusion or acute thrombosis in the head. IMPRESSION: 1. No evidence of acute thrombosis or hemodynamically significant stenosis in the neck. 2. Severe C5-C6 and C6-C7 foraminal stenosis, particularly on the left at C6-C7. Consider correlation with follow-up outpatient MRI to evaluate for neural impingement. REFERENCES: NASCET CRITERIA. The degree of stenosis in the cervical segment of the internal carotid artery is based on NASCET criteria. Normal is no stenosis. Mild is less than 50% stenosis. Moderate is 50-69% stenosis. Severe is 70% to 99% stenosis. Total occlusion is no detectable patent lumen. Laboratory Results WBC 9.01 10^3/uL (3.29-11.43) 07/21/25 20: RBC 4.43 10^6/uL (3.85-5.65) 07/21/25 20:41 Hgb 13.60 g/dL (11.27-16.99) 07/21/25 20:41 Hct 40.8 % (36-47) 07/21/25 20:41 MCV 92.1 fl (85-98) 07/21/25 20:41 MCH 30.7 pg (27-33) 07/21/25 20:41 MCHC 33.3 g/dL (30-55) 07/21/25 20:41 RDW 13.1 % (12.1-15.1) 07/21/25 20:41 Plt Count 244 10^3/cmm (157-399) 07/21/25 20:41 MPV 10.3 fL (7.4-10.4) 07/21/25 20:41 Neut % (Auto) 69.9 % 07/21/25 20:41 Lymph % (Auto) 20.8 % 07/21/25 20:41 [place] % (Auto) 6.8 % 07/21/25 20:41 Eos % (Auto) 1.2 % 07/21/25 20:41 Baso % (Auto) 0.9 % 07/21/25 20:41 Neut # (Auto) 6.30 10^3/uL (1.8-7.7) 07/21/25 20:41 Lymph # (Auto) 1.9 10^3/uL (0.8-4.8) 07/21/25 20:41 [place] # (Auto) 0.6 10^3/uL (0.2-0.9) 07/21/25 20:41 Eos # (Auto) 0.1 10^3/uL (0.0-0.8) 07/21/25 20:41 Baso # (Auto) 0.1 10^3/uL (0.0-0.1) 07/21/25 20:41 Nucleated RBC % (auto) 0 % 07/21/25 20:41 Nucleated RBCs # 0.0 /100WBC 07/21/25 20:41 Sodium 140 mmol/L (136-145) 07/21/25 20:41 Potassium 3.9 mmol/L (3.5-5.1) 07/21/25 20:41 Chloride 105 mmol/L (98-107) 07/21/25 20:41 Carbon Dioxide 22 mmol/L (22-29) 07/21/25 20:41 Anion Gap 16.9 (5-19) 07/21/25 20:41 BUN 15 mg/dL (8-23) 07/21/25 20:41 Creatinine 0.7 mg/dL (0.5-0.9) 07/21/25 20:41 GFR Calculation 84.8 mL/min (90-130) L 07/21/25 20:41 Glucose 112 mg/dL (65-115) 07/21/25 20:41 POC Glucose 91 mg/dL (70-110) 07/21/25 18:23 Calculated Osmolality 292 mOsm/kg (285-295) 07/21/25 20:41 Calcium 9.5 mg/dL (8.5-10.5) 07/21/25 20:41 Total Bilirubin 0.5 mg/dL (0.15-1.2) 07/21/25 20:41 AST 24 U/L (0-32) 07/21/25 20:41 ALT 24 U/L (0-33) 07/21/25 20:41 Alkaline Phosphatase 99 U/L (35-105) 07/21/25 20:41 Total Protein 7.3 g/dL (6.6-8.7) 07/21/25 20:41 Albumin 4.5 g/dL (3.5-5.2) 07/21/25 20:41 Globulin 2.8 g/dL (1.3-4.6) 07/21/25 20:41 All radiology interpretation(s) finalized by discharge Discharge Plan Discharge Patient Disposition: Home Clinical Impression: Normal neurological exam Condition: Stable Prescriptions: No Action lidocaine HCl 2 % jelly 1 applic topical TID PRN (Reason: pain) Qty: 30 1RF metoprolol ta-hydrochlorothiaz 100-25 mg tablet 1 tab PO QAM triamcinolone acetonide 0.1 % ointment 1 applic TOPICAL PRN metformin 750 mg tablet extended release 24 hr 1,500 mg PO QPM Jardiance 10 mg tablet 10 mg PO QAM naproxen 1 tab PO PRN Discharge Orders: Discharge ED (Routine); Ordered 07/21/25 Ordered By: Rody Crow Referrals: Alina French MD [Primary Care Provider, [facility]] Patient Instructions: Patient Portal & Alfonzo Instructions Activity Restrictions/Additional Instructions: As we discussed, imaging here was unremarkable. At the recommendation of our neurologist, please begin taking a baby aspirin a day and follow-up with your primary care provider. You may return to the emergency department for onset of any further episodes of motor loss or function, difficulty speaking, facial drooping, loss of sensation or weakness, or any other concerns you may have. Print Language: Portuguese Coding Level of Care Code ED Product Development Chemist for Hailee Royal NIH stroke score NIHSS Level Of Consciousness - 1a: 0 Level Of Consciousness Questions - 1b: Both Correct Level Of Consciousness Commands - 1c: Both Correct Best Gaze - 2: Normal Visual Aburto - 3: No Visual Loss Facial Palsy - 4: Normal Motor Arm Right - 5: No Drift Motor Arm Left - 5: No Drift Motor Leg Right - 6: No Drift Motor Leg Left - 6: No Drift Limb Ataxia - 7: Absent Sensory - 8: Normal Best Language - 9: No Aphasia Dysarthia - 10: Normal Extinction And Inattention - 11: 0 Score Total Score: 0
--- NOTE | 2025-07-21 19:40 | CTR_ITS ---
PROCEDURE INFORMATION: Exam: CT Head Without Contrast Exam date and time: 07/21/2025 7:49 PM Age: 60 years old Clinical indication: Stroke-like symptoms; Lt upper extremity weakness; Additional info: L arm weakness-resolved TECHNIQUE: Imaging protocol: Computed tomography of the head without contrast. Radiation optimization: All CT scans at this facility use at least one of these dose optimization techniques: automated exposure control; mA and/or kV adjustment per patient size (includes targeted exams where dose is matched to clinical indication); or iterative reconstruction. Other technique: STROKE PROTOCOL was implemented. COMPARISON: No relevant prior studies available. RADIATION DOSE METRICS: Total DLP (mGy-cm): 1148.28 FINDINGS: Brain: No evidence of intra-axial or extra-axial hemorrhage. No mass effect or midline shift. Andres-white differentiation is maintained. Basilar cisterns are patent. Cerebral ventricles: No hydrocephalus. Paranasal sinuses: The visualized paranasal sinuses are well aerated. Mastoid air cells: The visualized mastoids and middle ears are clear. Bones: Calvarium is intact. No evidence of acute fracture. Soft tissues: No gross soft tissue abnormality. CT/CT head wo con* [id number] IMPRESSION: 1. No acute intracranial abnormality. ASSESSMENT: ASPECTS ([place] Stroke Program Early CT Score) is 10.
--- NOTE | 2025-07-21 19:41 | CTR_ITS ---
PROCEDURE INFORMATION: Exam: CTA Head With Contrast, Arteriography Exam date and time: 07/21/2025 9:31 PM Age: 60 years old Clinical indication: Numbness; Additional info: R hearing loss, L arm numbness-all resolved TECHNIQUE: Imaging protocol: Computed tomographic angiography of the head with contrast. Exam focused on the arteries. 3D rendering (Not supervised by radiologist): MIP and/or 3D reconstructed images were created by the technologist. Radiation optimization: All CT scans at this facility use at least one of these dose optimization techniques: automated exposure control; mA and/or kV adjustment per patient size (includes targeted exams where dose is matched to clinical indication); or iterative reconstruction. Contrast material: OMNI 350; Contrast volume: 100 ml; Contrast route: INTRAVENOUS (IV); COMPARISON: CT head wo con* [id number] 07/21/2025 7:49 PM RADIATION DOSE METRICS: Total DLP (mGy-cm): 453.18 FINDINGS: ANTERIOR CIRCULATION: Right internal carotid artery: Patent. Right middle cerebral artery: Patent. Right anterior cerebral artery: Patent. Left internal carotid artery: Patent. Left middle cerebral artery: Patent. Left anterior cerebral artery: Patent. POSTERIOR CIRCULATION: Right vertebral artery: Patent. Left vertebral artery: Patent. Basilar artery: Patent. Right posterior cerebral artery: Patent. Left posterior cerebral artery: Patent. PROCEDURE INFORMATION: Exam: CTA Neck With Contrast Exam date and time: 07/21/2025 9:31 PM Age: 60 years old Clinical indication: Numbness; Additional info: R hearing loss, L arm numbness-all resolved TECHNIQUE: Imaging protocol: Computed tomographic angiography of the neck with contrast. Exam focused on the cervical segments of the vasculature. 3D rendering (Not supervised by radiologist): MIP and/or 3D reconstructed images were created by the technologist. Radiation optimization: All CT scans at this facility use at least one of these dose optimization techniques: automated exposure control; mA and/or kV adjustment per patient size (includes targeted exams where dose is matched to clinical indication); or iterative reconstruction. Contrast material: OMNI 350; Contrast volume: 100 ml; Contrast route: INTRAVENOUS (IV); COMPARISON: CT head wo con* [id number] 07/21/2025 7:49 PM RADIATION DOSE METRICS: Total DLP (mGy-cm): 453.18 FINDINGS: Right common carotid artery: Patent. No evidence of hemodynamically significant stenosis. Right internal carotid artery: Patent. No evidence of hemodynamically significant stenosis. Right external carotid artery: Patent. Left common carotid artery: Patent. No evidence of hemodynamically significant stenosis. Left internal carotid artery: Patent. No evidence of hemodynamically significant stenosis. Left external carotid artery: Patent. Right vertebral artery: Patent. Left vertebral artery: Patent. Soft tissues: No gross soft tissue abnormality. No evidence of fluid collection or hematoma. Bones/joints: No evidence of acute fracture or subluxation of the cervical spine. Severe C5-C6 and C6-C7 foraminal stenosis, particularly on the left at C6-C7. Consider correlation with follow-up outpatient MRI to evaluate for neural impingement. CT/CT angio headneck* [id number] IMPRESSION: 1. No evidence of large vessel occlusion or acute thrombosis in the head. IMPRESSION: 1. No evidence of acute thrombosis or hemodynamically significant stenosis in the neck. 2. Severe C5-C6 and C6-C7 foraminal stenosis, particularly on the left at C6-C7. Consider correlation with follow-up outpatient MRI to evaluate for neural impingement. REFERENCES: NASCET CRITERIA. The degree of stenosis in the cervical segment of the internal carotid artery is based on NASCET criteria. Normal is no stenosis. Mild is less than 50% stenosis. Moderate is 50-69% stenosis. Severe is 70% to 99% stenosis. Total occlusion is no detectable patent lumen.
[2025-07-21 20:00] VITALS: BP 164/91; PULSE 76; O2SAT 97
[2025-07-21 20:30] VITALS: BP 138/81; PULSE 80; O2SAT 97
[2025-07-21 20:58] LABS: Hematocrit 40.8 % (36-47); Hemoglobin 13.60 g/dL (11.27-16.99); Mean Corpuscular HGB Conc 33.3 g/dL (30-55); Mean Corpuscular Hemoglobin 30.7 pg (27-33); Mean Corpuscular Volume 92.1 fl (85-98); Nucleated Red Blood Cells % 0 %; Platelet Count 244 10^3/cmm (157-399); Red Blood Count 4.43 10^6/uL (3.85-5.65); White Blood Count 9.01 10^3/uL (3.29-11.43)
[2025-07-21 21:00] VITALS: BP 153/90; PULSE 95; O2SAT 98
[2025-07-21 21:13] LABS: Alanine Aminotransferase 24 U/L (0-33); Albumin Level 4.5 g/dL (3.5-5.2); Alkaline Phosphatase 99 U/L (35-105); Anion Gap 16.9 (5-19); Aspartate Amino Transferase 24 U/L (0-32); Blood Urea Nitrogen 15 mg/dL (8-23); Calcium 9.5 mg/dL (8.5-10.5); Carbon Dioxide 22 mmol/L (22-29); Chloride 105 mmol/L (98-107); Creatinine Clr Calc Pharmacy 82.6061; Globulin 2.8 g/dL (1.3-4.6); Glucose 112 mg/dL (65-115); Osmolality Calculated 292 mOsm/kg (285-295); Potassium 3.9 mmol/L (3.5-5.1); Sodium 140 mmol/L (136-145); Total Protein 7.3 g/dL (6.6-8.7)
[2025-07-21] MEDS: iohexol 350 mg/mL 500 mL Btl (per mL) IV (21:44)
[2025-07-21 22:09] VITALS: BP 134/83; PULSE 96; O2SAT 96
== END 2025-07-21 22:22 | disposition home or self-care (01) ==
PROVIDERS: Emergency Provider Physician Assistant; PCP Family Medicine
DX: Z13.858 Encounter for screening for other nervous system disorders (principal); Z79.84 Long term (current) use of oral hypoglycemic drugs; E11.9 Type 2 diabetes mellitus without complications; I10 Essential (primary) hypertension
CPT/HCPCS: 36415; 36416; 70450; 70496; 70498; 80053; 82962; 85025; 99285